=== PATIENT | male | born 1985 | race African-American/Black ===

== ENCOUNTER 2018-10-15 14:56 | Emergency (ER) | payer OTHER, BC, SELFPAY ==
[2018-10-15 14:57] VITALS: BP 141/84; PULSE 79; RESP 17; TEMP 35.8; O2SAT 96; BMI 23.7
--- NOTE | 2018-10-15 15:19 | ED.DEP ---
ED Disposition - Plan for ED Patient: Instructions: ED Head Injury Closed Referrals: Arnold Garces MD [Primary Care Provider] - [facility] [GROUP OF PHYSICIANS] -
--- NOTE | 2018-10-15 15:20 | DCINST.ED_ITS ---
ED Disposition - Plan for ED Patient: Instructions: ED Head Injury Closed Referrals: Arnold Garces MD [Primary Care Provider] - [facility] [GROUP OF PHYSICIANS] -
--- NOTE | 2018-10-15 15:22 | ED.VISSUMM ---
- ER Visit Summary Date of Service: 10/15/18 Chief Complaint: Head injury History of Present Illness: The patient is a 33 M presenting after hitting his head. Patient was at work. He states he was sitting in a chair leaning back. He states he hit the back of his head on a filing cabinet. He did not lose consciousness. No amnesia to the event. No vomiting. He complains of headache. He did not fall to the floor. He tried no medication prior to arrival. No other injuries. He is not on anticoagulants. Physical Examination: Vitals are stable. Patient is afebrile. Alert no acute distress. HEENT exam is unremarkable. Neck is nontender Lungs are clear and equal bilaterally. Heart is regular rate and rhythm. Abdomen is soft nontender nondistended. Extremities are unremarkable. Skin is warm and dry. No focal neurologic deficit. Remainder of exam is unremarkable. Emergency Department Course and Treatment: Patient is advised to use ice pack. Advised to use NSAIDs. Advised to follow-up with [facility] care. Advised return to ED if worsening complaints. Disposition: Discharge home Impression: Closed head injury This note was generated with [employer] dictation software. It may contain incorrect words, spelling, and punctuation that were not noted in review of the chart prior to signing ED Disposition - Plan for ED Patient: Instructions: ED Head Injury Closed Referrals: [facility] [GROUP OF PHYSICIANS] - Arnold Garces MD [Primary Care Provider] -
--- NOTE | 2018-10-15 15:29 | ED.DCSUM_ITS ---
- ER Visit Summary Date of Service: 10/15/18 Chief Complaint: Head injury History of Present Illness: The patient is a 33 M presenting after hitting his head. Patient was at work. He states he was sitting in a chair leaning back. He states he hit the back of his head on a filing cabinet. He did not lose consciousness. No amnesia to the event. No vomiting. He complains of headache. He did not fall to the floor. He tried no medication prior to arrival. No other injuries. He is not on anticoagulants. Physical Examination: Vitals are stable. Patient is afebrile. Alert no acute distress. HEENT exam is unremarkable. Neck is nontender Lungs are clear and equal bilaterally. Heart is regular rate and rhythm. Abdomen is soft nontender nondistended. Extremities are unremarkable. Skin is warm and dry. No focal neurologic deficit. Remainder of exam is unremarkable. Emergency Department Course and Treatment: Patient is advised to use ice pack. Advised to use NSAIDs. Advised to follow-up with [facility] care. Advised return to ED if worsening complaints. Disposition: Discharge home Impression: Closed head injury This note was generated with [employer] dictation software. It may contain incorrect words, spelling, and punctuation that were not noted in review of the chart prior to signing ED Disposition - Plan for ED Patient: Instructions: ED Head Injury Closed Referrals: [facility] [GROUP OF PHYSICIANS] - Arnold Garces MD [Primary Care Provider] -
== END 2018-10-15 16:00 | disposition home or self-care (01) ==
LOC: ED 15:49
PROVIDERS: Emergency Provider Emergency Medicine; Family Provider Internal Medicine; PCP Internal Medicine
DX: S09.90XA Unspecified injury of head, initial encounter (principal); W22.8XXA Striking against or struck by other objects, initial encounter; Y93.89 Activity, other specified; Y92.89 Other specified places as the place of occurrence of the external cause; Y99.0 Civilian activity done for income or pay
CPT/HCPCS: 99282

== ENCOUNTER → 2018-11-23 09:15 | Outpatient (CLI) | payer BC, SELFPAY ==
[2018-11-23 09:15] VITALS: BMI 23.7
[2018-11-23 12:39] LABS: Absolute Lymphocyte Count 2.56 X10^3/ul (0.83-4.51); Absolute Neutrophil Count 1.7 X10^3/uL (2.0-7.7); Basophil# 0.02 X10^3/uL; Basophil% 0.4 % (0-1); Eosinophil# 0.07 X10^3/uL; Eosinophils% 1.5 % (0-5); Hematocrit 39.4 % (40-54); Hemoglobin 13.2 g/dl (13.0-16.5); Lymphocyte # 2.56 X10^3/ul (4.0); Lymphocyte % 53.2 % (19-41); Mean Corp Hgb Conc 33.5 g/gl (32-36); Mean Corpuscular Hgb 27.8 pg (27.0-32.0); Mean Corpuscular Volume 83.1 fL (80-94); Mean Platelet Vol. 9.3 fl (6.2-12.0); Monocyte# 0.47 X10^3/uL; Monocyte% 9.8 % (0-10); Neutrophil # 1.69 X10^3/uL (2.7-7.7); Neutrophil % 35.1 % (47-70); Platelet Count 271 K/mm3 (150-450); RBC Distribution Width CV 13.9 % (11.6-14.6); RBC Distribution Width SD 42.6 fl (35.1-43.9); Red Blood Count 4.74 M/mm3 (4.6-6.2); White Blood Count 4.8 K/mm3 (4.4-11.0)
[2018-11-23 12:50] LABS: POSITIVE COUNT NO; POSITIVE DIFFERENTIAL NO; POSITIVE MORPHOLOGY NO
[2018-11-23 13:03] LABS: ALB/GLOB Ratio 1.1 RATIO (0.9-2.4); AST(SGOT) 12 U/L (15-37); Alanine Aminotransfer ALT/SGPT 28 U/L (16-61); Albumin, Serum 4.1 g/dL (3.2-5.0); Alkaline Phosphatase 48 U/L (45-117); Anion Gap 4 (5-15); BUN 11 mg/dL (7-18); BUN/Creat Ratio 10.5 RATIO (10-20); Calcium,Total 9.1 mg/dL (8.5-10.1); Chloride 105 mmol/L (98-107); Creatinine, Serum 1.05 mg/dL (0.70-1.30); EST Glomerular Filtration Rate 87 mL/min (>60); Est Glom Filt Rate - Afr Amer 105 mL/min (>60); Globulin 3.6 g/dL (2.2-4.2); Glucose 91 mg/dL (74-106); Potassium 3.9 mmol/L (3.5-5.1); Protein, Total 7.7 g/dL (6.4-8.2); Sodium Level 137 mmol/L (136-145)
== END ==
PROVIDERS: Family Provider Internal Medicine; PCP Internal Medicine; Visit Provider Internal Medicine
DX: Z00.00 Encounter for general adult medical examination without abnormal findings (principal)
CPT/HCPCS: 36415; 80053; 85025

== ENCOUNTER → 2018-11-26 13:50 | Outpatient (CLI) | payer BC, OTHER, SELFPAY ==
[2018-11-23 09:15] VITALS: BMI 23.7
--- NOTE | 2018-11-26 13:54 | RAD_ITS ---
STUDY: X-RAY - LUMBAR SPINE REASON FOR EXAM: Male, 33 years old. Back pain radiating into the legs TECHNIQUE: 5 view(s) of the lumbar spine were obtained. COMPARISON: None FINDINGS: Normal lumbar lordosis. There is no substantial scoliosis. There is a normal alignment of the vertebrae. Normal vertebral bodies and endplates. Normal disc space heights. The soft tissue structures are unremarkable. RAD/L/S Spine Min 4 Views IMPRESSION: Normal x-ray examination of the lumbar spine. Electronically Signed: Alex Garza DO at 14:41 EDT Tel , Service support ,
--- NOTE | 2018-11-26 13:54 | RAD_ITS ---
STUDY: X-RAY - THORACIC SPINE REASON FOR EXAM: Male, 33 years old. Mid back pain TECHNIQUE: 3 view(s) of the thoracic spine were obtained. COMPARISON: None. FINDINGS: Normal kyphosis of the thoracic spine. There is no substantial scoliosis. Normal thoracic vertebrae and endplates. Normal disc space heights. The soft tissue structures are unremarkable. RAD/Thoracic Spine 2 Views IMPRESSION: Normal x-ray examination of the thoracic spine. Electronically Signed: Alex Garza DO at 14:41 EDT Tel , Service support ,
== END ==
PROVIDERS: Family Provider Internal Medicine; PCP Internal Medicine; Referring Provider Chiropractor; Visit Provider Chiropractor
DX: S23.3XXA Sprain of ligaments of thoracic spine, initial encounter (principal); S33.5XXA Sprain of ligaments of lumbar spine, initial encounter; X58.XXXA Exposure to other specified factors, initial encounter; Y93.9 Activity, unspecified; Y92.9 Unspecified place or not applicable; Y99.9 Unspecified external cause status
CPT/HCPCS: 72070; 72110

== ENCOUNTER 2019-01-07 10:00 | Outpatient (RCR) | payer OTHER, BC, SELFPAY ==
[2018-11-23 09:15] VITALS: BMI 23.7
--- NOTE | 2018-12-07 13:13 | HP.PTEVAL_ITS ---
Patient's Visit Information ALEJANDRA FROST is a 33 year old M referred to Physical Therapy by Waldemar Beavers with a diagnosis of LUMBAR STRAIN. Date of Evaluation: 12/07/18 Physical Therapist: Dimas Pham PT, Cert MDT, OCS - Visit Plan Frequency: 2x /Week Duration: 4 Weeks Plan: INTERVENTIONS OTF EX,FLEXABLITY ,PROGRESS TO DLS ABD/BACK ,MODALTIES NEEDED - Subjective Findings: This 33 y/o male presenst to physical therapy with lumbar sprain. Patient injuried lumbar spine Oct 13 at work [employer]. Patient intially had LBP ,continue to work . Then 10 days later symptoms became Dr Beavers . Tried adjusments and treatment. Patient had x-rays - Pateint location of symptoms symtrical low back pain with radiating symptoms in hams -calf. Aggraveting factors bending lifting,bending,standing ,walking,sitting . Aleviating factors heat. No MEDS. Coughing/sneezing -. Bowel/bladder -. Patient is off work. C/O tinling left leg. Patient symptoms affect function abilty to RTW ,housework tasks. Patient condition affects QOL. SOCAIL: SINGLE. VOVATION: [employer] - Pain Bilateral Back Pain Intensity (Out of 10): 7 Pain Intensity Range: 6, 10 Left Lower Extremity Pain Intensity (Out of 10): 8 Pain Intensity Range: 10 - Objective POSTURE: mild foward posture. GAIT: normal perri. PALAPTION: unremarkable. NEURO: reflexes L3-4,L4-5,L5-S1 1/3 occassional parathesia left leg. MMT: quads 3+/5 + ANR ,hams 4/5 left ,right 4/5,hip flexion 4/5,ankle 5/5. LUMBAR ROM: flexion miod loss ,extension min/mod loss,side glides min loss. SYMMTRIES: align. FLEXABLITY: hams mod left ,right min - Special Tests L/S Slump test left side: Positive L/S Slump test right side: Negative L/S Left Straight Leg Raise: Negative L/S Right Straight Leg Raise: Positive Lumbar Standing: Flexion - Mechanical Response: No effect Lumbar Standing: Flexion - Symptoms During Testing: Increases Lumbar Standing: Flexion - Symptoms After Testing: Worse Lumbar Standing: Extension - Mechanical Response: No effect Lumbar Standing: Extension - Symptoms During Testing: Increases Lumbar Standing: Extension - Symptoms After Testing: No worse Lumbar Standing: Right Side Glides - Mechanical Response: No effect Lumbar Standing: Right Side [place] - Symptoms During Testing: Increases Lumbar Standing: Right Side [place] - Symptoms After Testing: No worse Lumbar Standing: Left Side [place] - Mechanical Response: No effect Lumbar Standing: Left Side [place] - Symptoms During Testing: Increases Lumbar Standing: Left Side [place] - Symptoms After Testing: No worse Lumbar Lying: Flexion - Mechanical Response: No effect Lumbar Lying: Flexion - Symptoms During Testing: Increases Lumbar Lying: Flexion - Symptoms After Testing: Worse Lumbar Lying: Extension - Mechanical Response: No effect Lumbar Lying: Extension - Symptoms During Testing: Abolishes Lumbar Lying: Extension - Symptoms After Testing: Better - Goals Goal 1:: Independant with HEP. Goal Time Frame: 4-6 Weeks Goal 2:: Independant with posture/body mechanics Goal Time Frame: 4-6 Weeks Goal 3:: Decreased lumbar pain by 50 % or greater to improve function to gait. Goal Time Frame: 4-6 Weeks Goal 4:: Patient to improve lumbar ROM for function recovery. Goal Time Frame: 4-6 Weeks Goal 5:: Patient increase back owestry 5 points or greater to improve QOL. 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 improve with extension worse with flexion thus benifit from skilled PT Rehabilitation Potential: Good - Anticipated Interventions Patient/Client Instruction: Educate patient on: Condition, Plan of Care For the Purpose of:: To decrease pain, To increase ROM, To improve muscle performance and motor function, To increase tolerance to activity/condition/position, To improve ability of physical actions for home/community/work/leisure, To improve health of tissue, To decrease soft tissue restriction, To increase flexibility/ROM, To reduce risk of recurrence, To improve ability to perform tasks related to life management Therapeutic Exercise to Include: Strength training, Body mechanics, Postural training, Flexibilty training, Dynamic Lumbar Stabilization, Otf Exercises For the Purpose of:: To decrease pain, To increase ROM, To improve muscle performance and motor function, To increase tolerance to activity/condition/position, To improve ability of physical actions for home/community/work/leisure, To improve health of tissue, To decrease soft tissue restriction, To increase flexibility/ROM, To improve ability to perform tasks related to life management TENS: Yes IF ES: Yes Thermo therapy (hot pack): Yes Ultrasound (thermal/non thermal): Yes For the Purpose of:: To decrease pain, To increase ROM, To improve nutrient delivery to tissue, To increase oxygenation perfusion, To improve health of tissue, To decrease soft tissue restriction Thank you for the opportunity to evaluate your patient. For Medicare and Medicare HMO plans, please review the plan of care and approve it. It will need to be FAXED BACK to us at [phone] for Medicare purposes. For Medicare only, by signing this I certify the plan of care. Please let me know if there are questions or concerns regarding this plan of care. Physician Signature: Date:
--- NOTE | 2019-01-19 13:19 | HP.PTDCSUM ---
HP - PT D/C Summary It has been my pleasure to treat ALEJANDRA FROST under orders from Waldemar Beavers, for the diagnosis of LUMBAR STRAIN for a total of 10 visit(s). Discharge Date: 01/19/19 Please see the following information for a summary of their discharge status. - Subjective Subjective: Doing alot better ,ocassional pain lateral hip. Patient doing alot better with pain - Pain Bilateral Back Pain Intensity (Out of 10): 0 Left Lower Extremity Pain Intensity (Out of 10): 1 - Overall Improvement % Improvement: 75 - Objective Objective/Function: POSTURE: WFL. GAIT: normal perri. LUMBAR ROM: flexion min loss ,extension min loss,side glides WFL. MMT: quads/hams 4/5,4/5hip flexion/abd ,ankle 4/5. -SLR. FLEXABLITY: hams mod limited on left - Goals Goal 1:: Independant with HEP. Goal Progress: Goal Met Goal 2:: Independant with posture/body mechanics Goal Progress: Goal Met Goal 3:: Decreased lumbar pain by 50 % or greater to improve function to gait. Goal Progress: Goal Met Goal 4:: Patient to improve lumbar ROM for function recovery. Goal Progress: Goal Met Goal 5:: Patient increase back owestry 5 points or greater to improve QOL. Goal Progress: Goal Met Goal 6:: Decrease ANR for function of recovery Goal Progress: Goal Met - Plan Plan: D/C AND RTD - D/C Information If there are questions or concerns regarding this patient's physical therapy, please feel free to call me at [phone]. Thank you for the referral of this patient. Sincerely, Dimas Pham, PT, Cert MDT, OCS
== END 2019-01-07 19:00 | disposition home or self-care (01) ==
LOC: PT 10:00
PROVIDERS: Family Provider Internal Medicine; PCP Internal Medicine; Referring Provider Chiropractor; Visit Provider Chiropractor
DX: S33.5XXD Sprain of ligaments of lumbar spine, subsequent encounter (principal)
CPT/HCPCS: 97110; 97161; 97530; J2405

== ENCOUNTER 2019-02-22 10:00 | Outpatient (RCR) | payer BC, OTHER, SELFPAY ==
[2018-11-23 09:15] VITALS: BMI 23.7
--- NOTE | 2019-01-22 11:24 | HP.PTREVAL ---
Waldemar Beavers, It has been my pleasure to treat ALEJANDRA FROST over the last 1 visits for LUMBAR STRAIN. Please see the progress note below for an update on the physical therapy plan of care! Plan Plan: PT INTERVENTIONS OTF EX'S,DLS ,POSTURAL EX'S,LE FLEXABLITY Goals Goal 1:: Patient to be Independant with HEP Goal Time Frame: 4-6 Weeks Goal 2:: Independant with posture /body mechanics . Goal Time Frame: 4-6 Weeks Goal 3:: Patient to improve lumbar ROM for function of recovery. Goal Time Frame: 4-6 Weeks Goal 4:: Patient decrease pain by 80 % or greater to improve function. Goal Time Frame: 4-6 Weeks Goal 5:: Patient to improve back owestry score by 5 points or greater to improve QOL. Goal Time Frame: 4-6 Weeks Anticipated Interventions Patient/Client Instruction: Educate patient on: Condition, Plan of Care For the Purpose of:: To decrease pain, To increase ROM, To improve muscle performance and motor function, To increase tolerance to activity/condition/position, To improve ability of physical actions for home/community/work/leisure, To improve health of tissue, To decrease soft tissue restriction, To increase flexibility/ROM, To improve health and function, To improve ability to perform tasks related to life management Therapeutic Exercise to Include: Strength training, Body mechanics, Postural training, Flexibilty training, Dynamic Lumbar Stabilization, Otf Exercises For the Purpose of:: To decrease pain, To increase ROM, To improve muscle performance and motor function, To improve ability to perform ADL's, To increase tolerance to activity/condition/position, To improve ability of physical actions for home/community/work/leisure, To improve health of tissue, To decrease soft tissue restriction, To increase flexibility/ROM, To improve ability to perform tasks related to life management Manual Therapy Techniques to Include: Mobilization Comment: LUMBAR For the Purpose of:: To increase ROM, To improve nutrient delivery to tissue, To increase oxygenation perfusion, To improve health of tissue, To decrease soft tissue restriction TENS: Yes IF ES: Yes Cryotherapy (ice pack, ice massage): Yes Thermo therapy (hot pack): Yes Ultrasound (thermal/non thermal): Yes For the Purpose of:: To decrease pain, To increase ROM, To improve nutrient delivery to tissue, To increase oxygenation perfusion, To improve health of tissue, To decrease soft tissue restriction Please do not hesitate to contact me at [phone] by phone or if you have questions or concerns regarding this new plan of care! Sincerely, Dimas Pham, PT, Cert MDT, OCS
--- NOTE | 2019-01-22 11:25 | HP.PTEVAL_ITS ---
Patient's Visit Information ALEJANDRA FROST is a 33 year old M referred to Physical Therapy by Waldemar Beavers with a diagnosis of LUMBAR STRAIN. Date of Evaluation: 01/22/19 Physical Therapist: Dimas Pham, PT, Cert MDT, OCS - Visit Plan Frequency: 2x /Week Duration: 4 Weeks Plan: PT INTERVENTIONS OTF EX'S,DLS ,POSTURAL EX'S,LE FLEXABLITY - Subjective Findings: This 33 y/o male presnets to physical therapy with lumbar pain. 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 Patient had adjustments which helped. Patient had x-rays which was -.Patient intilally had symptoms LBP hams to calf . Symptoms currently lateral hip to hams. Aggravating factors worse with extended siting,bending lifting. Aleviating f actors walking,standing and physical therapy and correct posture. Altough ,with extended walking lateral hip can increase symptoms . Sleeping good. Coughing/sneezing-. Bowel.bladder-. Seen DR Beavers for adjustment which helped and recommended. Dave parathesia/tingling. Symptoms affect QOL and RTW. SOCIAL: single. VOCATION: [employer] - Pain Left Hip Pain Intensity (Out of 10): 5 Pain Intensity Range: 10 Left Back Pain Intensity (Out of 10): 4 Pain Intensity Range: 10 - Objective POSTURE: shoulder. NEURO: denies parathesia/tingling ,reflexes L3-4,L4-5,L5-S1 3/3. PALAPTION: unremarkable. SYMMTRIES : align. MMT: quads/hams/hip 5/5right ,left 4/5 ankle 4/5. LUMBAR ROM: flexion min loss,extension WFL,side glides WFL. FLEXABLITY: hams mod loss. MUSCULAR ENDURANCE abd 30sec TA activation ,back ext 25 sec - Special Tests L/S Slump test left side: Positive L/S Slump test right side: Negative L/S Left Straight Leg Raise: Negative L/S Right Straight Leg Raise: Negative - Goals Goal 1:: Patient to be Independant with HEP Goal Time Frame: 4-6 Weeks Goal 2:: Independant with posture /body mechanics . Goal Time Frame: 4-6 Weeks Goal 3:: Patient to improve lumbar ROM for function of recovery. Goal Time Frame: 4-6 Weeks Goal 4:: Patient decrease pain by 80 % or greater to improve function. Goal Time Frame: 4-6 Weeks Goal 5:: Patient to improve back owestry score by 5 points or greater to improve QOL. Goal Time Frame: 4-6 Weeks - Rehabilitation Potential Physical Therapy Diagnosis: This patient appears to have lumbar derrangement above knee with pain worse with flexion type of activities improves with posture and extension thus benifit from skilled PT Rehabilitation Potential: Good - Anticipated Interventions Patient/Client Instruction: Educate patient on: Condition, Plan of Care For the Purpose of:: To decrease pain, To increase ROM, To improve muscle performance and motor function, To increase tolerance to activity/condition/position, To improve ability of physical actions for home/community/work/leisure, To improve health of tissue, To decrease soft tissue restriction, To increase flexibility/ROM, To improve health and function, To improve ability to perform tasks related to life management Therapeutic Exercise to Include: Strength training, Body mechanics, Postural training, Flexibilty training, Dynamic Lumbar Stabilization, Otf Exercises For the Purpose of:: To decrease pain, To increase ROM, To improve muscle performance and motor function, To improve ability to perform ADL's, To increase tolerance to activity/condition/position, To improve ability of physical actions for home/community/work/leisure, To improve health of tissue, To decrease soft tissue restriction, To increase flexibility/ROM, To improve ability to perform tasks related to life management Manual Therapy Techniques to Include: Mobilization Comment: LUMBAR For the Purpose of:: To increase ROM, To improve nutrient delivery to tissue, To increase oxygenation perfusion, To improve health of tissue, To decrease soft tissue restriction TENS: Yes IF ES: Yes Cryotherapy (ice pack, ice massage): Yes Thermo therapy (hot pack): Yes Ultrasound (thermal/non thermal): Yes For the Purpose of:: To decrease pain, To increase ROM, To improve nutrient delivery to tissue, To increase oxygenation perfusion, To improve health of tissue, To decrease soft tissue restriction Thank you for the opportunity to evaluate your patient. For Medicare and Medicare HMO plans, please review the plan of care and approve it. It will need to be FAXED BACK to us at [phone] for Medicare purposes. For Medicare only, by signing this I certify the plan of care. Please let me know if there are questions or concerns regarding this plan of care. Physician Signature: ___Date:
--- NOTE | 2019-06-08 10:21 | HP.PTDCSUM ---
HP - PT D/C Summary It has been my pleasure to treat ALEJANDRA FROST under orders from Waldemar Beavers, for the diagnosis of LUMBAR STRAIN for a total of 10 visit(s). Discharge Date: Please see the following information for a summary of their discharge status. - Subjective Subjective: Plan to MRI. - Pain Left Hip Pain Intensity (Out of 10): 5 Left Back Pain Intensity (Out of 10): 6 - Overall Improvement % Improvement: 70 - Objective Objective/Function: POSTURE: WFL. GAIT: NORMAL JONI. NEURO: INTACT L3-4,L4-5,L5-S1 3/3. MMT: RIGHT 5/5,LEFT 4/5. LUMBAR ROM: FLEXION MIN LOSS,EXTENSION WFL,SIDE GLIDES WFL. -SLR. REPONDS WELL WITH OTF EX'S AND DLS - Goals Goal 1:: Patient to be Independant with HEP Goal Progress: Goal Met Goal 2:: Independant with posture /body mechanics . Goal Progress: Goal Met Goal 3:: Patient to improve lumbar ROM for function of recovery. Goal Progress: Progressing Goal 4:: Patient decrease pain by 80 % or greater to improve function. Goal 5:: Patient to improve back owestry score by 5 points or greater to improve QOL. Goal Progress: Progressing - Plan Plan: MRI - D/C Information If there are questions or concerns regarding this patient's physical therapy, please feel free to call me at [phone]. Thank you for the referral of this patient. Sincerely, Dimas Pham, PT, Cert MDT, OCS
== END 2019-02-22 19:00 | disposition home or self-care (01) ==
LOC: PT 10:00
PROVIDERS: Family Provider Internal Medicine; PCP Internal Medicine; Referring Provider Chiropractor; Visit Provider Chiropractor
DX: S33.5XXD Sprain of ligaments of lumbar spine, subsequent encounter (principal)
CPT/HCPCS: 97110; 97164; 97530

== ENCOUNTER → 2019-02-26 | Outpatient (CLI) | payer OTHER, BC, SELFPAY ==
[2019-02-17 15:17] VITALS: BMI 23.7
--- NOTE | 2019-02-26 17:48 | MRI_ITS ---
STUDY: MRI LUMBAR SPINE WITHOUT CONTRAST REASON FOR EXAM: Male, 33 years old. sprain, LOW BACK PAIN INTO L HIP, NO RELIEF WITH THERAPY. TECHNIQUE: Standardized fat and water weighted pulse sequences were obtained in the sagittal and axial planes. COMPARISON: X-ray dated November 26, 2018 FINDINGS: T12-L1: Normal endplates. Normal disc height, hydration and morphology. Normal bilateral facet joints. Normal central canal and bilateral lateral recesses. Normal bilateral intervertebral neural foramina. Normal lumbar lordosis. There is no substantial scoliosis. Normal conus medullaris that terminates at the L1 L1-2: Normal endplates. Normal disc height, hydration and morphology. Normal bilateral facet joints. Normal central canal and bilateral lateral recesses. Normal bilateral intervertebral neural foramina. L2-3: Normal endplates. Normal disc height, hydration and morphology. Normal bilateral facet joints. Normal central canal and bilateral lateral recesses. Normal bilateral intervertebral neural foramina. L3-4: Normal endplates. Normal disc height, hydration and morphology. Normal bilateral facet joints. Normal central canal and bilateral lateral recesses. Normal bilateral intervertebral neural foramina. L4-5: There is mild disc space narrowing and endplates spondylosis. There is mild disc bulge with shallow left paracentral protrusion with moderate left lateral recess narrowing there is not significant central canal or foraminal stenosis L5-S1: Normal endplates. Normal disc height, hydration and morphology. Normal bilateral facet joints. Normal central canal and bilateral lateral recesses. Normal bilateral intervertebral neural foramina. Normal visualized sacral ala. Normal visualized paraspinous soft tissue structures. MRI/Spine Lumbar (Routine) IMPRESSION: L4/L5: Left paracentral protrusion with moderate left lateral recess narrowing. Electronically Signed: Dominga Caputo MD at 15:50 EDT Tel , Service support ,
== END | disposition home or self-care (01) ==
LOC: MRI 17:48
PROVIDERS: Family Provider Internal Medicine; PCP Internal Medicine; Referring Provider Chiropractor; Visit Provider Chiropractor
DX: S33.5XXA Sprain of ligaments of lumbar spine, initial encounter (principal)
CPT/HCPCS: 72148

== ENCOUNTER 2019-07-15 12:56 | Emergency (ER) | payer SELFPAY ==
[2019-03-30 09:32] VITALS: BMI 25.7
[2019-07-15 12:56] VITALS: BP 155/96; PULSE 126; RESP 16; TEMP 36.6; O2SAT 98; BMI 25.5
--- NOTE | 2019-07-15 13:12 | ED.DCSUM_ITS ---
- ER Visit Summary Date of Service: 07/15/19 Chief Complaint: Lump on neck History of Present Illness: The patient is a [address] Garces. He noticed that lump on the right occipital neck yesterday. He reports that he is an aching pain that is 5 out of 10 at worst and 4-10 currently. Is worsened by turning his head to the right. Is relieved by rest. Is not taking anything for pain. He denies any fever, chills, nausea, vomiting, headache, or other constitutional symptoms. Physical Examination: Vitals: Stable. Afebrile. General: Well-nourished and well-developed. Head: Normocephalic atraumatic. The right occipital region there is a solitary pea-sized lymph node that is freely mobile. There is no overlying erythema. No fluctuance or induration. Is not tender to palpation. There is no other cervical lymphadenopathy. Neck: Supple, no lymphadenopathy. No JVD. Nontender. Cardiovascular: Regular rate and rhythm. No murmurs. Respiratory: No respiratory distress. Clear to auscultation bilaterally. Abdominal: Soft, nontender, nondistended, normal bowel sounds. No guarding, rebound, or peritoneal signs. Back: Nontender. Extremities: Nontender, no edema. Skin: Normal color, no rash. Neurologic: Alert and oriented ?3. Cranial nerves II through XII are intact. Normal strength and sensation. Psych: Normal affect. Emergency Department Course and Treatment: I discussed the patient possible etiologies for this. As it is in his hair I am unable to say that he may not have a area of cellulitis that is the source of his lymphadenopathy. He was given a dose of doxycycline. Treatment Plan: Patient will be discharged on doxycycline. Instructed to follow-up his primary care physician 1 week. He does understand that if this does not improve with antibiotics that he may require a biopsy of this to rule out a more serious cause such as lymphoma. Return to the emergency department for any worsening symptoms. Disposition: To home in improved and stable condition. Impression: 1. Right occipital lymphadenitis. This note was generated with [employer] software. It may contain incorrect words, spelling, and punctuation that were not noted in review of the chart prior to signing ED Disposition - Plan for ED Patient: Disposition: Home or Assisted Living Instructions: CERVICAL ADENITIS, Antiobiotic Treatment Prescriptions: Doxycycline 100 mg PO BID #14 cap Prescription Printed Referrals: Arnold Garces MD [Primary Care Provider] - Keep Babs appointment
[2019-07-15] MEDS: Doxycycline 100 MG CAPSULE PO (13:24)
== END 2019-07-15 13:24 | disposition home or self-care (01) ==
LOC: ED 13:13
PROVIDERS: Emergency Provider Emergency Medicine; Family Provider Internal Medicine; PCP Internal Medicine
DX: I88.9 Nonspecific lymphadenitis, unspecified (principal)
CPT/HCPCS: 99283

== ENCOUNTER → 2019-07-19 11:59 | Outpatient (CLI) | payer BC, SELFPAY ==
[2019-07-19 11:36] VITALS: BMI 25.5
[2019-07-19 13:00] LABS: Anion Gap 4 (5-15); BUN 12 mg/dL (7-18); BUN/Creat Ratio 11.3 RATIO (10-20); Chloride 105 mmol/L (98-107); Cholesterol 131 mg/dL (200); Creatinine, Serum 1.06 mg/dL (0.70-1.30); EST Glomerular Filtration Rate 86 mL/min (>60); Est Glom Filt Rate - Afr Amer 104 mL/min (>60); Glucose 92 mg/dL (74-106); High Density Lipoprotein 46 mg/dL; Potassium 4.1 mmol/L (3.5-5.1); Sodium Level 138 mmol/L (136-145); Triglycerides 61 mg/dL; Very Low Density Lipoprotein 12 mg/dL (5-40)
== END ==
PROVIDERS: Family Provider Internal Medicine; PCP Internal Medicine; Visit Provider Internal Medicine
DX: I10 Essential (primary) hypertension (principal)
CPT/HCPCS: 36415; 80048; 80061

== ENCOUNTER 2022-03-30 20:30 | Emergency (ER) | payer OTHER, SELFPAY ==
[2022-03-30 20:32] VITALS: BP 164/108; PULSE 87; RESP 14; TEMP 36; O2SAT 99; BMI 24.9
--- NOTE | 2022-03-30 20:52 | EDS_ITS ---
HPI History of Present Illness Chief Complaint: Lower Extremity Injury Detail of Chief Complaint: Left leg/ankle pain Informant: patient Onset/Context/Timing Onset: Weeks Context: Gradual Onset Timing: Waxes and wanes Current Severity: Mild Maximum Severity: Moderate Narrative Narrative: Patient presents secondary to left ankle pain that is been ongoing for 6 weeks. On further questioning patient states that he had sciatica about 3 years ago. It subsided but over the past 6 weeks he now has pain that shoots all the way down his left leg into his ankle. He has never had affect his ankle before. He states his ankle does seem to be tender to the touch. He does not remember a specific injury to his lower leg. [facility] Medical History (Updated 03/30/22 @ 21:[address] Leslee Hebert MD) Back pain Frequent headaches Home Medications cyclobenzaprine 10 mg tablet 10 mg PO BID PRN muscle spasm #10 tabs 03/30/22 [Rx Last Taken Unknown] famotidine 40 mg tablet (Pepcid) 40 mg PO DAILY #14 tabs 03/30/22 [Rx Last Taken Unknown] hydrocodone-acetaminophen 5-325mg 5mg-325mg 1 tab PO Q6H PRN pain 3 days #10 tabs 03/30/22 [Rx Last Taken Unknown] naproxen 500 mg tablet (Naprosyn) 500 mg PO BID PRN pain #20 tabs 03/30/22 [Rx Last Taken Unknown] prednisone 20 mg tablet 40 mg PO DAILY #8 tabs 03/30/22 [Rx Last Taken Unknown] Allergy/AdvReac Type Severity Reaction Status Date / Time No Known Allergies Allergy Verified 03/30/22 20:32 Family History Father Cancer Mother Cancer Other Arthritis Diabetes Heart disease Hyperlipemia Hypertension Social History Smoking Status: Never smoker alcohol intake: current alcohol intake frequency: holidays/special occasions only substance use type: does not use what type of physical activity do you participate in: running frequency: 1-2 times per week ROS ROS ED Constitutional Constitutional ED: Denies chills or fever(s) Eyes Eyes: Denies change in vision or discharge from eye(s) ENT ENT ED: Denies discharge from eye(s), rhinorrhea or sore throat Cardiovascular Cardiovascular: Denies chest pain or palpitations Respiratory/Chest Respiratory/Chest: Denies cough or dyspnea Gastrointestinal Gastrointestinal: Denies abdominal pain, diarrhea, nausea or vomiting Genitourinary Genitourinary ED: Denies difficulty urinating or dysuria Musculoskeletal Musculoskeletal: Reports back pain and extremity pain Integumentary Denies Abrasions or rash Neurologic Neurologic: Denies headache(s) or weakness Psychiatric Psychiatric: Denies anxiety or depression Allergic/Immunologic Allergic/Immunologic ED: Denies lip swelling or urticaria EXAM Physical Exam Const Vital Signs: 03/30/22 20:32 03/30/22 21:05 Temperature 96.8 F L Temperature Source Temporal Pulse Rate 87 Respiratory Rate 14 Blood Pressure 164/108 H 135/94 H Blood Pressure Mean 126 107 Pulse Ox 99 Oxygen Delivery Method Room Air Positive well nourished and well developed General Appearance ED: well developed HEENT Reports normocephalic and head/scalp atraumatic Eyes PERRL and EOMs intact bilaterally Neck supple Chest Wall inspection of chest normal and palpation of chest normal Resp normal respiratory effort and clear to auscultation bilaterally Cardio regular rate and regular rhythm GI normal to inspection, nondistended, normoactive bowel sounds Palpation: soft Back/Spine no CVA tenderness Back/Spine Narrative: Mild tenderness in the left low lumbar paraspinal muscles. Extremity normal to inspection Extremity Narrative: Mild tenderness along the distal fibula of the left leg. No overlying skin changes. No edema. Neuro oriented x3 and no sensory deficits noted Sensorium / Orientation: alert Motor Exam: strength 5/5 throughout Psych mental status grossly normal Skin no rashes or lesions noted MDM MDM MDM Narrative Medical decision making narrative: With the patient having reproducible pain over the fibula left tib-fib x-rays are obtained to ensure no bony lesion. Treatment and Re-Evaluation Narrative: Left tib-fib x-ray per my interpretation shows no acute findings. Test results discussed with the patient. He is not currently on any medications at home. He will be given prescription for Naprosyn, Flexeril, prednisone, Pepcid. He will be written a few [place] for breakthrough pain. He will follow-up with Dr. Garces who he has seen in the past. Discharge Plan Triage Chief Complaint: Lower Extremity Injury ED Provider: Hebert,Leslee Dx/Rx/DC Orders Clinical Impression: Sciatica Instructions: ED Sciatica Prescriptions: New naproxen [Naprosyn] 500 mg tablet 500 mg PO BID PRN (Reason: pain) Qty: 20 0RF cyclobenzaprine 10 mg tablet 10 mg PO BID PRN (Reason: muscle spasm) Qty: 10 0RF prednisone 20 mg tablet 40 mg PO DAILY Qty: 8 0RF famotidine [Pepcid] 40 mg tablet 40 mg PO DAILY Qty: 14 0RF hydrocodone-acetaminophen 5-325 mg tablet 1 tab PO Q6H PRN (Reason: pain) 3 Days Qty: 10 0RF Discontinued meloxicam 15 mg tablet 15 mg PO DAILY PRN (Reason: back pain) Qty: 60 2RF Rx Instructions: Take 7.5 - 15 mg daily as needed. cyclobenzaprine 10 mg tablet 10 mg PO TID PRN (Reason: muscle spasm) Qty: 90 3RF hydrochlorothiazide 12.5 mg tablet 12.5 mg PO DAILY Qty: 30 3RF doxycycline monohydrate 100 MG capsule 100 mg PO BID Qty: 14 0RF Primary Care Provider: Care Physician,No Primary Referrals: Arnold Garces MD [Med Staff - Active Staff] - 1-2 Weeks Disposition Disposition: Home, Self Care
[2022-03-30 21:05] VITALS: BP 135/94
--- NOTE | 2022-03-30 21:24 | RAD_ITS ---
EXAM: XR LEFT TIBIA AND FIBULA, 2 VIEWS CLINICAL INDICATION: pain TECHNIQUE: Frontal and lateral views of the left tibia and fibula. This report was created using videof.me report generation technology. COMPARISON: None. FINDINGS: BONES/JOINTS: Unremarkable. No acute fracture. No subluxation. Normal alignment. Preservation of the joint space. No sclerotic or destructive changes observed. SOFT TISSUES: Unremarkable. No soft tissue swelling or gas. No radiopaque foreign body. RAD/Tibia & Fibula 2 Views IMPRESSION: Negative left tibia and fibula x-rays. Electronically Signed: Jose Carlos Guadarrama MD at 22:22 EDT ,
[2022-03-30] MEDS: Naproxen 500 MG Tablet PO (21:51)
[2022-03-30] MEDS: predniSONE 20 MG Tablet 40 MG PO (21:51)
[2022-03-30 21:56] VITALS: BP 135/94
== END 2022-03-30 21:57 | disposition home or self-care (01) ==
PROVIDERS: Emergency Provider Emergency Medicine; Visit Provider Emergency Medicine
DX: M54.30 Sciatica, unspecified side (principal); M79.605 Pain in left leg; M25.572 Pain in left ankle and joints of left foot
CPT/HCPCS: 73590; 99283

== ENCOUNTER → 2022-04-16 | Outpatient (CLI) | payer OTHER, SELFPAY ==
[2022-04-16 12:25] LABS: Absolute Lymphocyte Count 1.89 X10^3/uL (0.83-4.51); Absolute Neutrophil Count 3.3 X10^3/uL (2.0-7.7); Basophil# 0.02 X10^3/uL; Basophil% 0.4 % (0-1); Eosinophil# 0.03 X10^3/uL; Eosinophils% 0.5 % (0-5); Hematocrit 40.5 % (40-54); Hemoglobin 13.6 g/dL (13.0-16.5); Lymphocyte # 1.89 X10^3/ul (0.83-4.51); Lymphocyte % 33.2 % (19-41); Mean Corp Hgb Conc 33.6 g/dL (32-36); Mean Corpuscular Hgb 28.5 pg (27.0-32.0); Mean Corpuscular Volume 84.7 fL (80-94); Mean Platelet Vol. 9.5 fl (6.2-12.0); Monocyte# 0.45 X10^3/uL; Monocyte% 7.9 % (0-10); NRBC Flagged by Analyzer 0 % (0-5); Neutrophil # 3.29 X10^3/uL (2.7-7.7); Neutrophil % 57.8 % (47-70); Platelet Count 296 K/mm3 (150-450); RBC Distribution Width CV 14.5 % (11.6-14.6); RBC Distribution Width SD 44.7 fl (35.1-43.9); Red Blood Count 4.78 M/mm3 (4.6-6.2); White Blood Count 5.7 K/mm3 (4.4-11.0)
[2022-04-16 12:42] LABS: ALB/GLOB Ratio 0.9 RATIO (0.9-2.4); AST(SGOT) 12 U/L (15-37); Alanine Aminotransfer ALT/SGPT 29 U/L (16-61); Albumin, Serum 3.6 g/dL (3.2-5.0); Alkaline Phosphatase 53 U/L (45-117); Anion Gap 7 (5-15); BUN 11 mg/dL (7-18); BUN/Creat Ratio 11.9 RATIO (10-20); Calcium,Total 8.8 mg/dL (8.5-10.1); Chloride 105 mmol/L (98-107); Cholesterol 156 mg/dL (200); Creatinine, Serum 0.93 mg/dL (0.70-1.30); EST Glomerular Filtration Rate 98 mL/min (>60); Est Glom Filt Rate - Afr Amer 119 mL/min (>60); Glucose 93 mg/dL (74-106); High Density Lipoprotein 47 mg/dL; Protein, Total 7.6 g/dL (6.4-8.2); Sodium Level 140 mmol/L (136-145); Triglycerides 75 mg/dL; Very Low Density Lipoprotein 15 mg/dL (5-40)
== END | disposition home or self-care (01) ==
LOC: BIMLAB 10:07
PROVIDERS: PCP Internal Medicine; Visit Provider Internal Medicine
DX: I10 Essential (primary) hypertension (principal)
CPT/HCPCS: 36415; 80053; 80061; 85025

== ENCOUNTER → 2022-09-09 | Outpatient (CLI) | payer BC, SELFPAY ==
[2022-09-09 16:37] LABS: Absolute Lymphocyte Count 2.16 X10^3/uL (0.83-4.51); Absolute Neutrophil Count 1.4 X10^3/uL (2.0-7.7); Basophil# 0.02 X10^3/uL; Basophil% 0.5 % (0-1); Eosinophil# 0.05 X10^3/uL; Eosinophils% 1.3 % (0-5); Hematocrit 41.6 % (40-54); Hemoglobin 13.5 g/dL (13.0-16.5); Lymphocyte # 2.16 X10^3/ul (0.83-4.51); Lymphocyte % 55.2 % (19-41); Mean Corp Hgb Conc 32.5 g/dL (32-36); Mean Corpuscular Hgb 27.4 pg (27.0-32.0); Mean Corpuscular Volume 84.4 fL (80-94); Mean Platelet Vol. 9.6 fl (6.2-12.0); Monocyte# 0.25 X10^3/uL; Monocyte% 6.4 % (0-10); NRBC Flagged by Analyzer 0 % (0-5); Neutrophil # 1.43 X10^3/uL (2.7-7.7); Neutrophil % 36.6 % (47-70); Platelet Count 311 K/mm3 (150-450); RBC Distribution Width CV 14.1 % (11.6-14.6); RBC Distribution Width SD 43.5 fl (35.1-43.9); Red Blood Count 4.93 M/mm3 (4.6-6.2); White Blood Count 3.9 K/mm3 (4.4-11.0)
[2022-09-09 17:06] LABS: ALB/GLOB Ratio 1.1 RATIO (0.9-2.4); AST(SGOT) 13 U/L (15-37); Alanine Aminotransfer ALT/SGPT 24 U/L (16-61); Alkaline Phosphatase 50 U/L (45-117); Anion Gap 7 (5-15); BUN 9 mg/dL (7-18); BUN/Creat Ratio 8.7 RATIO (10-20); Calcium,Total 9.2 mg/dL (8.5-10.1); Chloride 106 mmol/L (98-107); Creatinine, Serum 1.03 mg/dL (0.70-1.30); EST Glomerular Filtration Rate 87 mL/min (>60); Est Glom Filt Rate - Afr Amer 105 mL/min (>60); Globulin 3.8 g/dL (2.2-4.2); Glucose 96 mg/dL (74-106); Potassium 4.1 mmol/L (3.5-5.1); Protein, Total 7.8 g/dL (6.4-8.2); Sodium Level 139 mmol/L (136-145); T4 Free Direct 0.95 ng/dL (0.76-1.46); Thyroid Stim Hormone (TSH) 1.77 uIU/mL (0.358-3.74)
[2022-09-09 17:34] LABS: Vitamin B12 538 pg/mL (211-911)
== END | disposition home or self-care (01) ==
PROVIDERS: PCP Internal Medicine; Referring Provider Internal Medicine; Visit Provider Internal Medicine
DX: F41.9 Anxiety disorder, unspecified (principal); F32.A Depression, unspecified
CPT/HCPCS: 36415; 80053; 82607; 84439; 84443; 85025

== ENCOUNTER 2022-11-03 00:57 | Emergency (ER) | payer BC, SELFPAY ==
[2022-11-03 00:57] VITALS: BP 198/97; PULSE 101; RESP 19; TEMP 35.6; O2SAT 100; BMI 25.4
--- NOTE | 2022-11-03 01:03 | EKG12_ITS ---
Test Reason : Blood Pressure : / mmHG Vent. Rate : 084 BPM Atrial Rate : 084 BPM P-R Int : 162 ms QRS Dur : 096 ms QT Int : 346 ms P-R-T Axes : 057 053 016 degrees QTc Int : 408 ms Normal sinus rhythm Minimal voltage criteria for LVH, may be normal variant ( Sokolow-Thomas ) Nonspecific T wave abnormality Abnormal ECG Confirmed by JUSTIN PONCE, CLARI ([id number]), desk editor SABINA HDEZ ([id number]) on 11/04/2022 12:10:34 P M Referred By: SHIRLENE Confirmed By:CAROL ANDERSON MD
[2022-11-03 01:10] LABS: Absolute Lymphocyte Count 5.42 X10^3/uL (0.83-4.51); Absolute Neutrophil Count 2.1 X10^3/uL (2.0-7.7); Basophil# 0.03 X10^3/uL; Basophil% 0.4 % (0-1); Eosinophil# 0.15 X10^3/uL; Eosinophils% 1.8 % (0-5); Hematocrit 43.4 % (40-54); Hemoglobin 14.4 g/dL (13.0-16.5); Lymphocyte # 5.42 X10^3/ul (0.83-4.51); Lymphocyte % 64.4 % (19-41); Mean Corp Hgb Conc 33.2 g/dL (32-36); Mean Corpuscular Hgb 27.9 pg (27.0-32.0); Mean Corpuscular Volume 83.9 fL (80-94); Mean Platelet Vol. 9.3 fl (6.2-12.0); Monocyte% 8.3 % (0-10); NRBC Flagged by Analyzer 0 % (0-5); Neutrophil # 2.11 X10^3/uL (2.7-7.7); POSITIVE DIFFERENTIAL YES; POSITIVE MORPHOLOGY YES; Platelet Count 301 K/mm3 (150-450); RBC Distribution Width CV 13.7 % (11.6-14.6); RBC Distribution Width SD 42.3 fl (35.1-43.9); Red Blood Count 5.17 M/mm3 (4.6-6.2); White Blood Count 8.4 K/mm3 (4.4-11.0)
--- NOTE | 2022-11-03 01:15 | RAD_ITS ---
INDICATION: chest pain EXAMINATION/TECHNIQUE: X-RAY - XR Chest 1 View COMPARISON: None. FINDINGS: LINES/DEVICES: None. LUNGS: No pulmonary edema or focal airspace consolidation. No sizable pleural effusion. No pneumothorax detected. MEDIASTINUM AND CARDIOVASCULAR STRUCTURES: Heart size within normal limits. Mediastinal contours unremarkable. BONES AND SOFT TISSUES: No acute findings. RAD/Chest 1 View (Portable) IMPRESSION: No radiographic evidence of acute cardiopulmonary disease. Electronically Signed: Bennie Strickland MD at 1:33 EDT ,
[2022-11-03 01:38] LABS: Differential Indicated SCAN CRITERIA MET
[2022-11-03 01:43] LABS: Anion Gap 6 (5-15); BUN 11 mg/dL (7-18); BUN/Creat Ratio 10.6 RATIO (10-20); Calcium,Total 9.4 mg/dL (8.5-10.1); Chloride 103 mmol/L (98-107); Creatinine, Serum 1.04 mg/dL (0.70-1.30); EST Glomerular Filtration Rate 86 mL/min (>60); Est Glom Filt Rate - Afr Amer 104 mL/min (>60); Estimated Creatinine Clearance 110.97 ml/min; Glucose 105 mg/dL (74-106); Potassium 3.4 mmol/L (3.5-5.1); Sodium Level 140 mmol/L (136-145); Troponin-I HS 4 pg/mL (3.0-78.0)
[2022-11-03 03:38] VITALS: BP 118/85; PULSE 64; RESP 16; O2SAT 98
[2022-11-03 03:48] LABS: Troponin-I HS 4 pg/mL (3.0-78.0)
--- NOTE | 2022-11-03 04:32 | ED.VIS.CHEST ---
HPI History of Present Illness Chief Complaint: Chest Pain Informant: patient Onset/Context/Timing Onset: Days Activity at onset: gradual Timing: Intermittent Quality: Positive for Tightness Current Severity: Mild Maximum Severity: Moderate Narrative Narrative: Patient presents secondary to 1 week history of intermittent chest tightness. He states it feels like a tension across his chest between the pectoral region and midline. He does not feel short of breath. He states sometimes the pain is worse when he bends over. He has not had significant reflux symptoms. PFSH PFS Medical History Anxiety and depression Back pain Frequent headaches Home Medications NK 11/03/22 [History Last Taken Unknown] Allergy/AdvReac Type Severity Reaction Status Date / Time No Known Allergies Allergy Verified 10/16/22 10:51 Family History Father Cancer Mother Cancer Other Arthritis Diabetes Heart disease Hyperlipemia Hypertension Social History Smoking Status: Never smoker alcohol intake: current alcohol intake frequency: holidays/special occasions only substance use type: does not use what type of physical activity do you participate in: running frequency: 1-2 times per week ROS ROS ED Constitutional Constitutional ED: Denies chills or fever(s) Eyes Eyes: Denies change in vision or discharge from eye(s) ENT ENT ED: Denies discharge from eye(s), rhinorrhea or sore throat Cardiovascular Cardiovascular: Reports chest pain; Denies palpitations Respiratory/Chest Respiratory/Chest: Denies cough or dyspnea Gastrointestinal Gastrointestinal: Denies abdominal pain, nausea or vomiting Genitourinary Genitourinary ED: Denies dysuria Musculoskeletal Musculoskeletal: Denies back pain or extremity pain Integumentary Denies Abrasions or rash Neurologic Neurologic: Denies headache(s) or weakness Psychiatric Psychiatric: Denies anxiety or depression Allergic/Immunologic Allergic/Immunologic ED: Denies lip swelling or urticaria EXAM Physical Exam Const Vital Signs: 11/03/22 00:57 11/03/22 01:00 11/03/22 01:04 Temperature 96.1 F L Temperature Source Temporal Pulse Rate 101 H Respiratory Rate 19 H Respiratory Effort Normal Non-Labored Blood Pressure 198/97 H Blood Pressure Mean 130 Pulse Ox 100 Oxygen Delivery Method Room Air Room Air 11/03/22 03:38 11/03/22 04:54 Temperature Temperature Source Pulse Rate 64 60 Respiratory Rate 16 14 Respiratory Effort Blood Pressure 118/85 H 119/82 H Blood Pressure Mean 96 Pulse Ox 98 99 Oxygen Delivery Method Room Air Positive well nourished and well developed General Appearance ED: well developed HEENT Reports normocephalic and head/scalp atraumatic Eyes PERRL and EOMs intact bilaterally Neck supple Chest Wall inspection of chest normal and palpation of chest normal Resp normal respiratory effort and clear to auscultation bilaterally Cardio regular rate and regular rhythm GI normal to inspection, nondistended, normoactive bowel sounds Palpation: soft Extremity normal to inspection Neuro oriented x3 and no sensory deficits noted Sensorium / Orientation: alert Motor Exam: strength 5/5 throughout Psych mental status grossly normal Skin no rashes or lesions noted Heart Score History: Slightly/Non-Suspicious ECG: Normal Age: </= 45 years Risk Factors: No Risk Factors Score: 0 MDM MDM MDM Narrative Medical decision making narrative: Patient placed on residential monitor. EKG obtained to evaluate for cardiac arrhythmia/ischemia. Labwork obtained to evaluate for leukocytosis, anemia, and electrolyte derangement. Chest x-ray obtained to evaluate for acute lung pathology, cardiac size, or mediastinal abnormality. History & Record Review Discussion w/independent historian: Patient and Family Lab Data Attestation: I reviewed the patient's lab results. Labs: Laboratory Results - last 24 hr 11/03/22 11/03/22 11/03/22 01:01 01:01 03:21 WBC 8.4 RBC 5.17 Hgb 14.4 Hct 43.4 MCV 83.9 MCH 27.9 MCHC 33.2 RDW Std Deviation 42.3 RDW Coeff of Dwayne 13.7 Plt Count 301 MPV 9.3 Immature Gran % (Auto) 0.100 Neut % (Auto) 25.0 L Lymph % (Auto) 64.4 H [place] % (Auto) 8.3 Eos % (Auto) 1.8 Baso % (Auto) 0.4 Absolute Neuts (auto) 2.1 Absolute Lymphs (auto) 5.42 H Nucleated RBC % 0 Sodium 140 Potassium 3.4 L Chloride 103 Carbon Dioxide 31.0 Anion Gap 6 BUN 11 Creatinine 1.04 Estim Creat Clear Calc 110.97 Est GFR (MDRD) Af Amer 104 Est GFR (MDRD) Non-Af 86 BUN/Creatinine Ratio 10.6 Glucose 105 Calcium 9.4 Troponin I High Sens 4 4 Radiography Chest X-Ray - ED: 1 View, Read by ED Physician, Normal, Heart, Lungs and Mediastinum Diagnostic Testing: Clinical Impression(s) from Imaging Studies Chest X-Ray 11/03/22 01:15 IMPRESSION: No radiographic evidence of acute cardiopulmonary disease. 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 Chest x-ray per my interpretation feels no acute abnormalities. Radiology interpretation is reviewed. CBC is unremarkable. Chemistry studies normal. Troponin is 4 with 2-hour repeat also returning at 4. Test results discussed with patient and family at bedside. He will continue supportive care. Return instructions provided. I did encourage him to follow-up with his primary care physician if not improving in the next week. If he has further symptoms including worsening chest pain especially with any exertion he is to return for repeat evaluation. Discharge Plan Triage Chief Complaint: Chest Pain ED Provider: Leslee Hebert Dx/Rx/DC Orders Clinical Impression: Chest pain Instructions: ED Chest Pain, Noncardiac Prescriptions: No Action NK Primary Care Provider: Arnold Garces Referrals: Arnold Garces MD [Primary Care Provider] - 1 Week if not improving Disposition Disposition: Home, Self Care Discharge Date/Time: 11/03/22 05:00
[2022-11-03 04:54] VITALS: BP 119/82; PULSE 60; RESP 14; O2SAT 99
== END 2022-11-03 05:00 | disposition home or self-care (01) ==
PROVIDERS: Emergency Provider Emergency Medicine; PCP Internal Medicine; Visit Provider Emergency Medicine
DX: R07.89 Other chest pain (principal)
CPT/HCPCS: 71045; 80048; 84484; 85025; 93005; 99284; A4216

== ENCOUNTER 2023-09-01 22:10 | Emergency (ER) | payer BC, SELFPAY ==
[2023-09-01 22:12] VITALS: BP 162/108; PULSE 104; RESP 18; TEMP 36.1; O2SAT 100; BMI 26.4
--- OUTSIDE RECORDS SUMMARY | 2023-09-01 22:55 | XMS RPT_ITS | CCD ---
Author Name Unknown Address [address] [place] [address] Organization [facility] Care Team Providers Care Assistant Research Scientist Name Role Phone Unavailable Primary Care Provider TESSA Mohan Referring Unavailable Problems Problem Classification Problem Date Documented Da te Episodic/Chronic Other male genital disorders (2 sources) Testicular mass; Translations: [Other specified disorders of the male genital organs] Episodic Other male genital disorders (1 source) Cyst of testis; Translations: [Benign cyst of testis] Episodic Other male genital disorders (1 source) Other specified disorders of the male genital organs; Translations: [Testicular lump] Onset: 11-14-2022 Episodic Residual codes; unclassified (1 source) Procedure not done; Translations: [Procedure and treatment not carried out, unspecified reason] Episodic Results Test Name Value Interpretation Reference Range Facil ity Vital Signs Date Time Vital Sign Value Performing Clinician Abbie brooks 11-08-2022 12:01-0400 Body temperature 97.11 [degF] Tessa Heaton CCNP.ANALYTICS SPECIALIST Work Phone: [facility] 11-08-2022 12:01-0400 Body weight 87.73 kg Tessa Heaton CCNP.ANALYTICS SPECIALIST Work Phone: [facility] 11-08-2022 12:01-0400 Diastolic blood pressure 104 mm[Hg] Tessa Heaton CCNP.ANALYTICS SPECIALIST Work Phone: [facility] 11-08-2022 12:01-0400 Heart rate 114 /min Tessa Heaton CCNP.ANALYTICS SPECIALIST Work Phone: [facility] 11-08-2022 12:01-0400 Respiratory rate 18 /min Tessa Heaton CCNP.ANALYTICS SPECIALIST Work Phone: [facility] 11-08-2022 12:01-0400 SaO2% (BldA) [Mass fraction] 99 % Tessa Heaton CCNP.MICHAEL Work Phone: [facility] 11-08-2022 12:01-0400 Systolic blood pressure 172 mm[Hg] Tessa Heaton CCNP.MICHAEL Work Phone: [facility] Encounters Encounter Date Encounter Type Care Provider Facility Start: 11-14-2022 Telephone encounter Tessa perez CCNP.ANALYTICS SPECIALIST Work Phone: [facility] Procedures Date Procedure Procedure Detail Performing Clinician Start: 11-14-2022 Dup-scan artl jake abdl/pel/scrot&/rpr orgn com Tessa Heaton CCNP.MICHAEL Work Phone: Start: 11-14-2022 Us scrotum & contents J marine Heaton CCNP.ANALYTICS SPECIALIST Work Phone: Plan of Treatment Date Care Activity Detail Author Start: 04-18-2023 Covid-19 Vaccine ( season) Covid-19 Vaccine ( season) [facility] Start: 04-18-2023 Influenza vaccination Influenza Vaccine (#1) [facility] Start: 08-18-2022 DEPRESSION ASSESSMENT DEPRESSION ASSESSMENT [facility] Start: 04-18-2022 Influenza vaccination INFLUENZA (#1) [facility] Start: 07-18-2021 COVID-19 VACCINE (2 - Pfizer series) COVID-19 VACCINE (2 - Pfizer series) [facility] Start: 2021 Lipid 1996 panel - Serum or Plasma Lipid Screening [facility] Start: 2021 LIPID SCREEN LIPID SCREEN [facility] Start: 2005 Urine microalbumin profile [facility] Start: 2004 HEPATITIS C SCREENING HEPATITIS C SCREENING [facility] Start: 2004 HIV SCREENING HIV SCREENING [facility] Start: 1986 HEPATITIS B (1 of 3 - 3-dose series) HEPATITIS B (1 of 3 - 3-dose series) [facility] Start: 1986 Hepatitis B Vaccine (1 of 3 - 3-dose series) Hepatitis B Vaccine (1 of 3 - 3-dose series) [facility] End: 12-08-2023 Dup-scan artl jake abdl/pel/scrot&/rpr orgn com US DOPPLER COMPLETE Radiology STAT Testicular lump 1 Occurrences starting 11/08/2022 until 12/08/2023 [facility] Work Phone: Payers Date Payer Category Payer Unknown [employer] C[employer] PPO OOS [id number] 2022-Present [phone] [address] [place] [address] PPO [id number] 2022 Unknown [id number] Social History Date Type Detail Facility Tobacco smoking stat [facility] Tobacco smoking consumption unknown [facility] Start: 1985 Sex Assigned At Not on file [facility] Start: 11-08-2022 Tobacco smoking stat [facility] Never smoked tobacco [facility] Start: 11-08-2022 Tobacco use and exposure Smokeless t obacco non-user [facility] Start: 11-08-2022 History of Social function [facility] Start: 11-08-2022 Tobacco use panel [facility] Clinical Notes 10-18-2022 to 11-14-2022 Telephone Encounter - Greta Leyva LPN - 11/14/2022 12:03 PM EDTTelephone Encounter - Sherri Haney LPN - 11/14/2022 11:57 AM SHALONDATTessa Santillan RDMS - 11/14/2022 8:30 AM EDT Note Date & Type Note Facility 11-14-2022 Miscellaneous Notes Spoke with pt and information listed below given. Pt verbalizes understanding. Greta Leyva LPN Left message for patient to return call for results and recommendations.Sherri Haney LPN Results just popped in. Please let him know that the US shows no masses. It does reveal a cyst (non cancerous). I have placed a urology consult if symptoms persist. Can we reach out to patient as it appears he has not had scheduled US from [facility] last week. Did he have it performed at another facility ? documented in this encounter [facility] 11-14-2022 Note HNO ID: [id number] Author: Tessa Santillan RDMS Service: ? Author Type: Photo Offset Printer Type: Progress Notes Filed: 11/14/2022 9:59 AM Note Text: Radiology Service Progress Note PATIENT NAME: Anshul Holloway DATE OF SERVICE: November 14, 2022 TIME: 9:59 AM PATIENT IDENTITY VERIFICATION COMPLETED USING TWO (2) IDENTIFIERS: Name and Date of confirmed by patient verbally. FALL SCREENING: Has the patient had 2 falls in the last year or 1 fall with injury or currently using an Ambulatory Assistive Device (Walker, Cane, Wheelchair, Crutches, etc.)? No PATIENT GENDER DATA: Male PATIENT RELEVANT IMPLANT DATA REVIEWED: Not Applicable RADIOLOGY DEPARTMENT: Ultrasound PERIPHERAL IV DATA: Not applicable SIGNED BY: Tessa Santillan RDMS RVT November 14, 2022 9:59 AM [facility] 11-14-2022 History of Present illness Narrative Radiology Service Progress Note PATIENT NAME: Anshul Holloway DATE OF SERVICE: November 14, 2022 TIME: 9:59 AM PATIENT IDENTITY VERIFICATION COMPLETED USING TWO (2) IDENTIFIERS: Name and Date of confirmed by patient verbally. FALL SCREENING: Has the patient had 2 falls in the last year or 1 fall with injury or currently using an Ambulatory Assistive Device (Walker, Cane, Wheelchair, Crutches, etc.)? No PATIENT GENDER DATA: Male PATIENT RELEVANT IMPLANT DATA REVIEWED: Not Applicable RADIOLOGY DEPARTMENT: Ultrasound PERIPHERAL IV DATA: Not applicable SIGNED BY: Tessa Santillan RDMS RVT November 14, 2022 9:59 AM documented in this encounter [facility] 11-08-2022 Note HNO ID: [id number] Author: Tessa Heaton APRN.ANALYTICS SPECIALIST Service: ? Author Type: Nurse Practitioner Type: Progress Notes Filed: 11/08/2022 2:23 PM Note Text: This note was created using [employer]CHICA. Subjective Anshul Holloway is a 37 year old male. 37 years old male presented with acute illness started yesterday Patient reported that during routine self assessment in shower last night he noted small size bump on his right testicle. Patient reported that bump is not sore and wasn't tender with palpation. He reported history of similar size bump on his neck in 2019 when he went to ED and was prescribed ATB for it. The bump on his neck resolved on it's own. Denies recent cold, flu or other acute illnesses, reported going to ED five days ago with a chest pain and high blood pressure, but was told that it is probably due to stress.Reported occasional stress related headache that resolves on it's own. Denies chest pain, palpitations, SOB, edema to lower extremity. Denies abdominal pain, nausea, vomiting, diarrhea. Denies urgency or frequency with urination, pain or burning with urination. Patient reported stop taking prescribed hydrochlorothiazide weeks ago because his BP is good when he is checking it every day at home. The history is provided by the patient. No bark peeler was used. Male Problem This is a new problem. The current episode started yesterday. The problem occurs constantly. The problem has been unchanged. Associated symptoms include headaches. Pertinent negatives include no abdominal pain, anorexia, arthralgias, change in bowel habit, chest pain, chills, congestion, coughing, diaphoresis, fatigue, fever, joint swelling, myalgias, nausea, neck pain, numbness, rash, sore throat, swollen glands, urinary symptoms, vertigo, visual change, vomiting or weakness. Nothing aggravates the symptoms. He has tried nothing for the symptoms. The treatment provided no relief. History reviewed. No pertinent past medical history. History reviewed. No pertinent surgical history. ALLERGIES Patient has no known allergies. MEDICATIONS No prescriptions on file. History reviewed. No pertinent family history. Social History Tobacco Use Smoking status: Never Smokeless tobacco: Never Review of Systems Constitutional: Negative for activity change, appetite change, chills, diaphoresis, fatigue, fever and unexpected weight change. HENT: Negative for congestion, ear discharge, ear pain, hearing loss, mouth sores, nosebleeds, postnasal drip, rhinorrhea, sinus pressure, sinus pain, sneezing, sore throat and trouble swallowing. Eyes: Negative for pain, discharge, redness, itching and visual disturbance. Respiratory: Negative for cough, chest tightness, shortness of breath and wheezing. Cardiovascular: Negative for chest pain, palpitations and leg swelling. Gastrointestinal: Negative for abdominal distention, abdominal pain, anorexia, blood in stool, change in bowel habit, constipation, diarrhea, nausea and vomiting. Endocrine: Negative for cold intolerance and heat intolerance. Genitourinary: Positive for difficulty urinating. Negative for decreased urine volume, dysuria, flank pain, frequency, genital sores, hematuria, penile discharge, penile pain, penile swelling, scrotal swelling, testicular pain and urgency. Musculoskeletal: Negative for arthralgias, back pain, gait problem, joint swelling, myalgias and neck pain. Skin: Negative for color change, pallor, rash and wound. Allergic/Immunologic: Negative for environmental allergies, food allergies and immunocompromised state. Neurological: Positive for headaches. Negative for dizziness, vertigo, seizures, weakness, light-headedness and numbness. Psychiatric/Behavioral: Negative for behavioral problems, decreased concentration and sleep disturbance. The patient is not nervous/anxious. Objective BP 172/104 Pulse 114 Temp 36.2 ?C (97.1 ?F) Resp 18 Wt 87.7 kg (193 lb 6.4 oz) SpO2 99% Physical Exam Vitals and nursing note reviewed. Exam conducted with a assistant distribution manager present. Constitutional: General: He is not in acute distress. Appearance: Normal appearance. He is normal weight. He is not ill-appearing, toxic-appearing or diaphoretic. HENT: Head: Normocephalic and atraumatic. Right Ear: Tympanic membrane, ear canal and external ear normal. There is no impacted cerumen. Left Ear: Tympanic membrane, ear canal and external ear normal. There is no impacted cerumen. Nose: Nose normal. No congestion or rhinorrhea. Mouth/Throat: Mouth: Mucous membranes are moist. Pharynx: Oropharynx is clear. No oropharyngeal exudate or posterior oropharyngeal erythema. Eyes: General: No scleral icterus. Right eye: No discharge. Left eye: No discharge. Conjunctiva/sclera: Conjunctivae normal. Pupils: Pupils are equal, round, and reactive to light. Neck: Vascular: No carotid bruit. Cardiovascular: Rat (more content not included)... [facility] 11-08-2022 History of Present illness Narrative This note was created using ACHICA. Subjective Anshul Holloway is a 37 year old male. 37 years old male presented with acute illness started yesterday Patient reported that during routine self assessment in shower last night he noted small size bump on his right testicle. Patient reported that bump is not sore and wasn't tender with palpation. He reported history of similar size bump on his neck in 2019 when he went to ED and was prescribed ATB for it. The bump on his neck resolved on it's own. Denies recent cold, flu or other acute illnesses, reported going to ED five days ago with a chest pain and high blood pressure, but was told that it is probably due to stress.Reported occasional stress related headache that resolves on it's own. Denies chest pain, palpitations, SOB, edema to lower extremity. Denies abdominal pain, nausea, vomiting, diarrhea. Denies urgency or frequency with urination, pain or burning with urination. Patient reported stop taking prescribed hydrochlorothiazide weeks ago because his BP is good when he is checking it every day at home. The history is provided by the patient. No bark peeler was used. Male Problem This is a new problem. The current episode started yesterday. The problem occurs constantly. The problem has been unchanged. Associated symptoms include headaches. Pertinent negatives include no abdominal pain, anorexia, arthralgias, change in bowel habit, chest pain, chills, congestion, coughing, diaphoresis, fatigue, fever, joint swelling, myalgias, nausea, neck pain, numbness, rash, sore throat, swollen glands, urinary symptoms, vertigo, visual change, vomiting or weakness. Nothing aggravates the symptoms. He has tried nothing for the symptoms. The treatment provided no relief. History reviewed. No pertinent past medical history. History reviewed. No pertinent surgical history. ALLERGIES Patient has no known allergies. MEDICATIONS No prescriptions on file. History reviewed. No pertinent family history. Social History Tobacco Use Smoking status: Never Smokeless tobacco: Never Review of Systems Constitutional: Negative for activity change, appetite change, chills, diaphoresis, fatigue, fever and unexpected weight change. HENT: Negative for congestion, ear discharge, ear pain, hearing loss, mouth sores, nosebleeds, postnasal drip, rhinorrhea, sinus pressure, sinus pain, sneezing, sore throat and trouble swallowing. Eyes: Negative for pain, discharge, redness, itching and visual disturbance. Respiratory: Negative for cough, chest tightness, shortness of breath and wheezing. Cardiovascular: Negative for chest pain, palpitations and leg swelling. Gastrointestinal: Negative for abdominal distention, abdominal pain, anorexia, blood in stool, change in bowel habit, constipation, diarrhea, nausea and vomiting. Endocrine: Negative for cold intolerance and heat intolerance. Genitourinary: Positive for difficulty urinating. Negative for decreased urine volume, dysuria, flank pain, frequency, genital sores, hematuria, penile discharge, penile pain, penile swelling, scrotal swelling, testicular pain and urgency. Musculoskeletal: Negative for arthralgias, back pain, gait problem, joint swelling, myalgias and neck pain. Skin: Negative for color change, pallor, rash and wound. Allergic/Immunologic: Negative for environmental allergies, food allergies and immunocompromised state. Neurological: Positive for headaches. Negative for dizziness, vertigo, seizures, weakness, light-headedness and numbness. Psychiatric/Behavioral: Negative for behavioral problems, decreased concentration and sleep disturbance. The patient is not nervous/anxious. Objective BP 172/104 Pulse 114 Temp 36.2 C (97.1 F) Resp 18 Wt 87.7 kg (193 lb 6.4 oz) SpO2 99% Physical Exam Vitals and nursing note reviewed. Exam conducted with a assistant distribution manager present. Constitutional: General: He is not in acute distress. Appearance: Normal appearance. He is normal weight. He is not ill-appearing, toxic-appearing or diaphoretic. HENT: Head: Normocephalic and atraumatic. Right Ear: Tympanic membrane, ear canal and external ear normal. There is no impacted cerumen. Left Ear: Tympanic membrane, ear canal and external ear normal. There is no impacted cerumen. Nose: Nose normal. No congestion or rhinorrhea. Mouth/Throat: Mouth: Mucous membranes are moist. Pharynx: Oropharynx is clear. No oropharyngeal exudate or posterior oropharyngeal erythema. Eyes: General: No scleral icterus. Right eye: No discharge. Left eye: No discharge. Conjunctiva/sclera: Conjunctivae normal. Pupils: Pupils are equal, round, and reactive to light. Neck: Vascular: No carotid bruit. Cardiovascular: Rate and Rhythm: Normal rate and regular rhythm. Pulses: Normal pulses. Heart sounds: Normal heart sounds. No murmur heard. No friction rub. No gallop. Pulmonary: Effort: Pulmonary effort is normal. No respiratory distress. Breath sounds: Normal breath sounds. No stridor. No wheezing, rhonchi or rales. Chest: Chest wall: No tenderness. Abdominal: General: Abdomen is flat. Bowel sounds are normal. There is no distension. Palpations: Abdomen is soft. There is no mass. Tenderness: There is no abdominal tenderness. There is no right CVA tenderness, left CVA tenderness, guarding or rebound. Hernia: No hernia is present. Genitourinary: Pubic Area: No rash or pubic lice. Penis: Normal and circumcised. Testes: Normal. Right: Mass, tenderness, swelling, testicular hydrocele or varicocele not present. Right testis is descended. Left: Mass, tenderness, swelling, testicular hydrocele or varicocele not present. Left testis is descended. Comments: No bump or pimple noted on right testicle during assessment Musculoskeletal: General: No swelling, tenderness, deformity or signs of injury. Normal range of motion. Cervical back: Normal range of motion and neck supple. No rigidity or tenderness. Right lower leg: No edema. Left lower leg: No edema. Lymphadenopathy: Cervical: No cervical adenopathy. Skin: General: Skin is warm and dry. Capillary Refill: Capillary refill takes less than 2 seconds. Coloration: Skin is not jaundiced or pale. Findings: No bruising, erythema, lesion or rash. Neurological: General: No focal deficit present. Mental Status: He is alert and oriented to person, place, and time. Cranial Nerves: No cranial nerve deficit. Sensory: No sensory deficit. Motor: No weakness. Coordination: Coordination normal. Gait: Gait normal. Deep Tendon Reflexes: Reflexes normal. Psychiatric: Mood and Affect: Mood normal. Behavior: Behavior normal. Thought Content: Thought content normal. Assessment and Plan ASSESSMENT/PLAN: 1. Testicular lump - ICD9: 608.89, ICD10: N50.89 Acute onset of noting yesterday evening. - no lump on right testicle noted during assessment, will obtain ultrasound to rule out mass. - US SCROTUM AND CONTENTS Scheduled for 11/14/22. Luzma Armstrong TEACHING PROVIDER (Physician/PA/CCNP) NOTE OF PERSONAL INVOLVEMENT IN CARE: I have personally seen and examined the patient and performed the medical decision-making components. I have reviewed the Advanced Practice Registered Nurse (CCNP) Student's documentation and verified the findings in the note as written. Any additions or changes are noted in bold/italics. Signature: Tessa Heaton Date: 11/08/2022 Time: 2:12 PM documented in this encounter [facility] 10-18-2022 Note HNO ID: [id number] Author: Geraldo Mcdonald APRN.MICHAEL Service: ? Author Type: Nurse Practitioner Type: Progress Notes Filed: 10/18/2022 4:14 PM Note Text: Nontoxic-appearing male presents urgent care requesting evaluation for anxiety depression. Patient states currently under care for anxiety depression by a PCP/counseling center. Presents today for extension on work related documentation. Patient has no other concerns today. On evaluation I recommend patient be seen by PCP or counseling centered regarding work related paperwork associated with his diagnosis of anxiety depression. Patient verbalized understanding agrees with plan of care. Geraldo Mcdonald APRN.CNP [facility] 10-18-2022 History of Present illness Narrative Nontoxic-appearing male presents urgent care requesting evaluation for anxiety depression. Patient states currently under care for anxiety depression by a PCP/counseling center. Presents today for extension on work related documentation. Patient has no other concerns today. On evaluation I recommend patient be seen by PCP or counseling centered regarding work related paperwork associated with his diagnosis of anxiety depression. Patient verbalized understanding agrees with plan of care. Geraldo Mcdonald APRN.ANALYTICS SPECIALIST documented in this encounter [facility] Diagnosis Testicular lump- Primary Other specified disorder of male genital organs [facility] Diagnosis Testicular cyst- Primary Other specified disorder of male genital organs [facility] Diagnosis Testicular lump Other specified disorder of male genital organs [facility] Diagnostic Procedure Only (Urgent) - Pending Review Specialty Diagnoses / Procedures Referred By Contac t Referred To Contact US IMAGING Diagnoses Testicular lump Procedures US DOPPLER COMPLETE DUP-SCAN ARTL JAKE ABDL/PEL/SCROT&/RPR ORGN Tessa Redd APRN.ANALYTICS SPECIALIST [address] [place] [address] Us Imaging Referral ID Status Reason Start Date Expiration Date Visits Requested Visits Authorized [id number] Pending Review Auto-Generat ed Referral 11/08/2022 12/08/2023 1 1 * Diagnostic Procedure Only (Urgent) - Authorized Specialty Diagnoses / Procedures Referred By Contac t Referred To Contact US IMAGING Diagnoses Testicular lump Procedures US SCROTUM AND CONTENTS US SCROTUM & CONTENTS Tessa Heaton APRN.ANALYTICS SPECIALIST [address] [place] [address] Us Imaging Referral ID Status Reason Start Date Expiration Date Visits Requested Visits Authorized [id number] Authorized Auto-Generat ed Referral 11/08/2022 12/08/2023 1 1 [facility] for referral (narrative)* Diagnostic Procedure Only (Urgent) - Closed Specialty Diagnoses / Procedures Referred By Contac t Referred To Contact US IMAGING Diagnoses Testicular lump Procedures US SCROTUM AND CONTENTS US SCROTUM & CONTENTS Tessa Heaton APRN.ANALYTICS SPECIALIST [address] [place] [address] [place] [address] Referral ID Status Reason Start Date Expiration Date V isits Requested Visits Authorized [id number] Closed Auto-Generate d Referral 11/08/2022 12/08/2023 1 1 [facility] Reason for Referral Specialty Diagnoses / Procedures Referred By Rosalie du Referred To Contact Urology Diagnoses Testicular cyst Procedures CONSULT TO UROLOGY OFFICE/OUTPATIENT [facility] MDM 60-74 MINUTES Tessa Heaton APRN.ANALYTICS SPECIALIST [address] [place] [address] Referral ID Status Reason Start Date Expiration Date Visits Requested Visits Authorized [id number] Authorized PCP Requested Referral 11/14/2022 11/14/2023 1 1 Summary Purpose Family History No Family History Records Found Advance Directives No Advanced Directives Records Found Additional Source Comments Source Comments (unrecognize d section and content) In the event this informatio n is protected by the Federal Confidentiality of Alcohol and Drug Abuse Patient Records regulations: The Federal rules restrict any use of the information to criminally investigate or prosecute any alcohol or drug abuse patient.[facility] the event this information is protected by the Federal Confidentiality of Alcohol and Drug Abuse Patient Records regulations: The Federal rules restrict any use of the information to criminally investigate or prosecute any alcohol or drug abuse patient.[facility] System[facility] the event this information is protected by the Federal Confidentiality of Alcohol and Drug Abuse Patient Records regulations: The Federal rules restrict any use of the information to criminally investigate or prosecute any alcohol or drug abuse patient.[facility] System[facility] the event this information is protected by the Federal Confidentiality of Alcohol and Drug Abuse Patient Records regulations: The Federal rules restrict any use of the information to criminally investigate or prosecute any alcohol or drug abuse patient.[facility] Reason for Visit (unrecogniz ed section and content) Reason Comments Results Reason Comments Radiology US Specialty Diagnoses / Procedures Referred By Rosalie du Referred To Contact US IMAGING Diagnoses Testicular lump Procedures US SCROTUM AND CONTENTS US SCROTUM & CONTENTS Tessa Heaton, REYNALDO.ANALYTICS SPECIALIST [id number] [place] [address] [place] [id number] Referral ID Status Reason Start Date Expiration Date V isits Requested Visits Authorized [id number] Closed Auto-Generate d Referral 11/08/2022 12/08/2023 1 1 (unrecognized sect ion and content) No Status Records Found INFORMATION SOURCE (unrecogn ized section and content) FOR RECORDS PERTAINING TO PATIENTS WHO ARE OR HAVE BEEN ENROLLED IN A CHEMICAL DEPENDENCY/SUBSTANCEABUSE PROGRAM, SOME INFORMATION MAY BE OMITTED. This clinical summary was aggregated from multiple sources. Caution should be exercised in using it in the provision of clinical care. This summary normalizes information from multiple sources, and as a consequence, information in this document may materially change the coding, format and clinical context of patient data. In addition, data may be omitted in some cases. CLINICAL DECISIONS SHOULD BE BASED ON THE PRIMARY CLINICAL RECORDS. [facility] [employer] [facility]. provides no warranty or guarantee of the accuracy or completeness of information in this document.
[2023-09-01 23:00] VITALS: BP 128/80; PULSE 76; RESP 13
--- NOTE | 2023-09-01 23:06 | RAD_ITS ---
STUDY: X-RAY CHEST REASON FOR EXAM: Male, 38 years old. chets pain TECHNIQUE: PA and lateral views of the chest. COMPARISON: 11/03/2022 FINDINGS: The lungs are clear and expanded. There is no demonstrated pleural abnormality. Normal size heart. Normal mediastinum and kyle. Normal visualized pulmonary arteries. Normal visualized aortic arch and descending thoracic aorta. Normal visualized thoracic spine. Normal visualized ribs, clavicles, and shoulders. There is no demonstrated abnormality of the visualized soft tissue structures of the upper abdomen. RAD/Chest PA and Lateral IMPRESSION: Normal x-ray examination of the chest. Electronically Signed: Sourav Machado MD at 23:25 [facility] ,
[2023-09-01 23:15] VITALS: BP 140/89
[2023-09-01 23:17] LABS: Absolute Lymphocyte Count 3.79 X10^3/uL (0.83-4.51); Absolute Neutrophil Count 2.5 X10^3/uL (2.0-7.7); Basophil# 0.03 X10^3/uL; Basophil% 0.4 % (0-1); Eosinophils% 1.4 % (0-5); Hematocrit 41.6 % (40-54); Hemoglobin 13.6 g/dL (13.0-16.5); Lymphocyte # 3.79 X10^3/ul (0.83-4.51); Lymphocyte % 53.5 % (19-41); Mean Corp Hgb Conc 32.7 g/dL (32-36); Mean Corpuscular Hgb 27.6 pg (27.0-32.0); Mean Corpuscular Volume 84.6 fL (80-94); Mean Platelet Vol. 9.7 fl (6.2-12.0); Monocyte# 0.62 X10^3/uL; Monocyte% 8.8 % (0-10); NRBC Flagged by Analyzer 0 % (0-5); Neutrophil # 2.53 X10^3/uL (2.7-7.7); Neutrophil % 35.8 % (47-70); Platelet Count 320 K/mm3 (150-450); RBC Distribution Width SD 43.4 fl (35.1-43.9); Red Blood Count 4.92 M/mm3 (4.6-6.2); White Blood Count 7.1 K/mm3 (4.4-11.0)
--- NOTE | 2023-09-01 23:23 | EKG12_ITS ---
Test Reason : CP Blood Pressure : / mmHG Vent. Rate : 081 BPM Atrial Rate : 081 BPM P-R Int : 170 ms QRS Dur : 092 ms QT Int : 324 ms P-R-T Axes : 062 050 028 degrees QTc Int : 376 ms Normal sinus rhythm Possible Left atrial enlargement Nonspecific ST abnormality Abnormal ECG Confirmed by BRITNI PONCE, HERNESTO ([id number]), website/blog editor SABINA HDEZ ([id number]) on 09/03/2023 9:19:18 AM Referred By: Confirmed By:HERNESTO RYDER MD
[2023-09-01 23:28] VITALS: BP 145/99; PULSE 82; RESP 14; O2SAT 98
[2023-09-01 23:41] LABS: Anion Gap 5 (5-15); BUN 12 mg/dL (7-18); BUN/Creat Ratio 10.4 RATIO (10-20); Calcium,Total 9.4 mg/dL (8.5-10.1); Chloride 105 mmol/L (98-107); Creatinine, Serum 1.15 mg/dL (0.70-1.30); EST Glomerular Filtration Rate 76 mL/min (>60); Est Glom Filt Rate - Afr Amer 92 mL/min (>60); Estimated Creatinine Clearance 99.39 ml/min; Glucose 98 mg/dL (74-106); Potassium 3.2 mmol/L (3.5-5.1); Sodium Level 141 mmol/L (136-145); Troponin-I HS 4 pg/mL (3.0-78.0)
[2023-09-02] VITALS: BP 127/91; PULSE 77; RESP 13; O2SAT 97
[2023-09-02 01:00] VITALS: BP 136/98; PULSE 65; RESP 14; O2SAT 96
--- NOTE | 2023-09-02 01:04 | EX.ED.DYSGE1 ---
HPI History of Present Illness Chief Complaint: Chest Pain Informant: patient Narrative Narrative: Patient is a 38-year-old male with past medical history of anxiety and intermittent hypertension. He states that today he ate pork belly and Ramen for dinner. He states he had a few cups of coffee after this. He states he felt some chest discomfort in the left chest wall which was better with palpation and breathing. However because of the discomfort he decided to check his blood pressure and it was elevated and this concerned him and therefore he comes to the hospital for evaluation. Patient denies any history of cardiac disease at a young age in the family he denies any illicit drug use he also denies any recent travel surgery or history of DVT/PE. [facility] Medical History Anxiety and depression Back pain Frequent headaches Home Medications NK 11/03/22 [History Last Taken Unknown] Allergy/AdvReac Type Severity Reaction Status Date / Time No Known Allergies Allergy Verified 09/01/23 22:12 Family History Father Cancer Mother Cancer Other Arthritis Diabetes Heart disease Hyperlipemia Hypertension Social History Smoking Status: Never smoker alcohol intake: current alcohol intake frequency: holidays/special occasions only substance use type: does not use what type of physical activity do you participate in: running frequency: 1-2 times per week ROS ROS ED Constitutional Constitutional ED: Denies chills or fever(s) Eyes Eyes: Denies change in vision ENT ENT ED: Denies sore throat Cardiovascular Cardiovascular: Reports chest pain; Denies palpitations or racing heartbeat Respiratory/Chest Respiratory/Chest: Denies cough or dyspnea Gastrointestinal Gastrointestinal: Denies abdominal pain, diarrhea, nausea or vomiting Genitourinary Genitourinary ED: Denies dysuria Musculoskeletal Musculoskeletal: Denies back pain, myalgias or neck pain Integumentary Denies rash Neurologic Neurologic: Denies headache(s) Hematologic/Lymphatic Hematologic/Lymphatic: Denies easy bleeding or easy bruising EXAM Physical Exam Const Vital Signs: 09/02/23 01:00 09/02/23 01:28 Pulse Rate 65 Respiratory Rate 14 Blood Pressure 136/98 H 125/78 H Blood Pressure Mean 108 93 Pulse Ox 96 Positive well nourished and well developed General Appearance ED: well developed HEENT HEENT Narrative: Normocephalic atraumatic Eyes PERRL and EOMs intact bilaterally General Eye ED: Negative for scleral icterus Neck supple and no JVD Neck Narrative: No nuchal rigidity or meningeal signs Chest Wall palpation of chest normal Chest Narrative: No bony deformity or crepitance Resp normal respiratory effort and clear to auscultation bilaterally Cardio regular rate and regular rhythm Rate: other Other Details: Heart is regular rate and rhythm without murmurs rubs or gallops Radial and carotid pulses are equal and symmetric GI normal to inspection, nondistended, normoactive bowel sounds, non-tender, non-distended and no masses GI Narrative: No voluntary guarding or rigidity or pulsatile mass Auscultation: normoactive bowel sounds Palpation: soft Extremity normal to inspection Extremity Narrative: No asymmetric edema no pitting edema negative Homans' sign bilaterally Neuro oriented x3, CN's II-XII intact bilaterally and no sensory deficits noted Sensorium / Orientation: alert Motor Exam: strength 5/5 throughout Psych mental status grossly normal Skin no rashes or lesions noted MDM MDM MDM Narrative Medical decision making narrative: Patient presented to the ER hypertensive otherwise with stable vitals. He is low risk for acute coronary syndrome based on his report of chest pain as well as vague/abnormal chest wall pain there is concern for ACS versus pneumonia versus pneumothorax. With hypertension there is also concern for acute kidney injury or electrolyte. Secondary to his a basic cardiac workup was obtained. X-ray revealed no acute lung pathology and showed no widening of the mediastinum going against potential dissection. Blood work revealed normal troponin going against acute coronary syndrome and this correlates with his normal EKG. lab work also reveals no signs of acute kidney injury or severe electrolyte derangement. Without treatment the patient's blood pressure improved 15 to 25% which is the goal of reduction in the ER he reported feeling better. Therefore at this time as he is low risk for ACS and his hypertension has resolved without treatment there is no need for further workup and he is otherwise safe for discharge History & Record Review Discussion w/independent historian: Patient Lab Data Attestation: I reviewed the patient's lab results. Labs: Laboratory Results - last 24 hr 09/01/23 22:26 WBC 7.1 RBC 4.92 Hgb 13.6 Hct 41.6 MCV 84.6 MCH 27.6 MCHC 32.7 RDW Std Deviation 43.4 RDW Coeff of Dwayne 14.0 Plt Count 320 MPV 9.7 Immature Gran % (Auto) 0.100 Neut % (Auto) 35.8 L Lymph % (Auto) 53.5 H [place] % (Auto) 8.8 Eos % (Auto) 1.4 Baso % (Auto) 0.4 Absolute Neuts (auto) 2.5 Absolute Lymphs (auto) 3.79 Nucleated RBC % 0 Sodium 141 Potassium 3.2 L Chloride 105 Carbon Dioxide 31.0 Anion Gap 5 BUN 12 Creatinine 1.15 Estim Creat Clear Calc 99.39 Est GFR (MDRD) Af Amer 92 Est GFR (MDRD) Non-Af 76 BUN/Creatinine Ratio 10.4 Glucose 98 Calcium 9.4 Troponin I High Sens 4 Radiography Diagnostic Testing: Clinical Impression(s) from Imaging Studies Chest X-Ray 09/01/23 23:06 IMPRESSION: Normal x-ray examination of the chest. Electronically Signed: Sourav Machado MD at 23:25 EST Reading Location ID and State: [id number] Tel , Service support , Chest x-ray as interpreted by the emergency medicine physician reveals no acute infiltrate pneumothorax pleural effusion or widening of the mediastinum Discharge Plan Triage Chief Complaint: Chest Pain Other Complaint: Hypertension ED Provider: Jose Carlos Morales Dx/Rx/DC Orders Clinical Impression: Acute nonspecific chest pain with low risk of coronary artery disease, Hypertension Instructions: ED Chest Pain, Uncertain Cause, ED High Blood Pressure Hypertension Prescriptions: No Action NK Primary Care Provider: Arnold Garces Referrals: Arnold Garces MD [Primary Care Provider] - Disposition Disposition: Home, Self Care Discharge Date/Time: 09/02/23 01:28 Capacity Legal [employer] Reflex Medical hold order details:: IF a medical hold is selected below, a suggested order for a MEDICAL HOLD will reflex upon signing the document. Next of kin: [place] law dictates a PRIORITY LIST for identifying legal decision-maker/legal next of kin in the following order (LNOK): 1st: The patient?s legal guardian, if any 2nd: The patient's spouse (if status is questionable, consult Risk Management) 3rd: The patient?s adult child(dylan) (majority, if multiple children) 4th: The patient?s parents 5th: The patient?s adult siblings (majority, if multiple children siblings)
[2023-09-02 01:28] VITALS: BP 125/78
== END 2023-09-02 01:28 | disposition home or self-care (01) ==
PROVIDERS: Emergency Provider Emergency Medicine; PCP Internal Medicine; Visit Provider Emergency Medicine
DX: R07.9 Chest pain, unspecified (principal); I10 Essential (primary) hypertension
CPT/HCPCS: 71046; 80048; 84484; 85025; 93005; 99284; A4216

== ENCOUNTER → 2025-03-10 | Outpatient (CLI) | payer OTHER, BC, SELFPAY ==
--- NOTE | 2025-03-10 10:42 | RAD_ITS ---
PROCEDURE: WRIST MIN 3 VIEWS 03/10/2025 REASON FOR EXAM: PAIN TECHNIQUE: WRIST MIN 3 VIEWS, right COMPARISON: None. FINDINGS: Bones: No visible fracture. No suspicious bone lesion. Joints: Normal alignment. Joint spaces preserved. No arthropathic features. Soft tissues: Soft tissues are unremarkable. RAD/Wrist min 3 Views IMPRESSION: NEGATIVE WRIST Reading Location: [id number]
--- OUTSIDE RECORDS SUMMARY | 2025-03-10 21:26 | XMS RPT_ITS | CCD ---
Author Organization [facility] Care Team Providers Care [employer] Supervisor Name Role Phone Dr. Arnold Garces Primary Care Provider [phone] Dr. Arnold Garces Attending Provider [phone] Dr. Arnold Garces Referring Provider [phone] Unavailable Primary Care Provider Dr. Arnold Salgado Primary Care Provider [phone] Dr. Arnold Garces Attending Provider [phone] Dr. Arnold Garces Referring Provider [phone] Sada PRIMARY CARE PROVIDER.Sheri RODRIGUEZ Primary Care Provider Sada PRIMARY CARE PROVIDER.Sheri RODRIGUEZ Primary Care Provider Arnold Garces Referring Unavailable Arnold Garces Primary Care Unavailable Job Wilson Attending Unavailable Job Wilson Attending Unavailable Arnold Garces Referring Unavailable Arnold Garces Primary Care Unavailable Dr. Arnold Garces MD Primary Care Provider Job Wilson Attending Provider Dr. Arnold Garces MD Referring Provider [phone] Medications Current Medications Medication Drug Class(es) Dates Sig (Normalized) Sig (Original) amLODIPine 5 mg oral tablet (15 sources) Dihydropyridine Calcium Channel Zhou Start: 09-09-2023 End: 03-28-2024 take 1 tablet by mouth once daily amLODIPine (NORVASC) 5 mg tablet Indications: Hypertension, essential Take 1 tablet by mouth once daily. 90 tablet 1 03/29/2024 Active Comment on above: Take 1 tablet by catherine once daily. cyclobenzaprine hydrochloride 10 mg oral tablet (20 sources) Muscle Relaxant Start: 10-13-2023 End: 06-22-2024 take 1 tablet by mouth three times daily as needed for muscle spasms cyclobenzaprine (FLEXERIL) 10 mg tablet Indications: Neck pain Take 1 tablet by mouth three times a day as needed for muscle spasm. 30 tablet 06/23/2024 Active Start: 09-09-2023 take 1 tablet by catherine three times daily as needed for muscle spasms cyclobenzaprine (FLEXERIL) 10 mg tablet Indications: Neck pain Take 1 tablet by mouth three times a day as needed for muscle spasm. 30 tablet 0 09/09/2023 Active Start: 03-30-2022 End: 04-16-2022 take 1 tablet by mouth twice daily as needed for muscle spasms Cyclobenzaprine 10 mg tablet Discontinued 10 mg PO TWICE A DAY as needed for muscle spasm 10 0 March 30, 2022 12:00am April 16, 2022 9:20am Start: 07-19-2019 End: 03-30-2022 take 1 tablet by mouth three times daily as needed for muscle spasms Cyclobenzaprine 10 mg tablet Discontinued 10 mg PO THREE TIMES A DAY as needed for muscle spasm 90 3 July 19, 2019 1:00am March 30, 2022 9:41pm Comment on above: Take 1 tablet by cathernie three times a day as needed for muscle spasm. iv contrast (will be provided with radiology test) (1 source) Start: 12-17-2023 End: 12-18-2023 iv contrast (will be provided with radiology test) CT LIVER W IVCON Inject, intravenously, once for 1 dose. No IV access, insert saline lock prior to the beginning of sedation, infusion, injection of imaging exam. Discontinue saline lock post exam. If Pt. has a central line or IVAD, may access for administration according to line specific nursing protocol. Once exam is complete flush line and de-access according to line specific nursing protocol in the CT contrast administration guidelines link. 1 Each 0 12/17/2023 12/18/2023 Active [facility] (Nk) (3 sources) Start: 11-03-2022 [facility] (Nk) Active November 02, 2022 11:00pm Start: 11-03-2022 [facility] (Nk) Rosalinda ctive November 03, 2022 12:00am OTC NUTRITIONAL SUPPLEMENT (7 sources) OTC NUTRITIONAL SUPPLEMENT Take 2 Tablespoonsful by mouth three times a day at 6 am, 12 pm, and 9 pm. Gallbladder Complete Cleanser Active OTC NUTRITIONAL SUPPLEMENT Take 2 Tablespoonsful by mouth three times a day at 6 am, 12 pm, and 9 pm. Gallbladder Complete Cleanser 0 Active Completed/Discontinued Medications Medication Drug Class(es) Dates Sig (Normalized) Sig (Original) acetaminophen 325 mg / HYDROcodone bitartrate 5 mg oral tablet (5 sources) Opioid Agonist Start: 03-30-2022 End: 04-16-2022 Hydrocodone-Acetami nophen 5-325 mg tablet Discontinued 1 {tbl} PO EVERY 6 HOURS as needed for pain 10 3 0 March 30, 2022 April 16, 2022 9:20am Sciatica Sciatica, unspecified side Start: 03-30-2022 End: 04-16-2022 take 1 tablet by mouth every six hours Hydrocodone-Acetaminophen Discontinued 1 TABLET PO EVERY 6 HOURS 10 3 March 30, 2022 April 16, 2022 8:20am doxycycline monohydrate 100 mg oral capsule (5 sources) Tetracycline-class Drug Start: 07-15-2019 End: 03-30-2022 take 1 capsule by mouth twice daily Doxycycline Monohydrate 100 MG capsule Discontinued 100 mg PO TWICE A DAY 14 0 July 15, 2019 1:00am March 30, 2022 9:41pm famotidine 40 mg oral tablet (5 sources) Histamine-2 Receptor Antagonist Start: 03-30-2022 End: 09-09-2022 take 1 tablet by mouth once daily Famotidine (Pepcid) 40 mg tablet Discontinued 40 mg PO DAILY 14 0 March 30, 2022 12:00am September 09, 2022 3:11pm hydroCHLOROthiazide 12.5 mg oral tablet (9 sources) Thiazide Diuretic Start: 09-09-2022 End: 10-02-2022 take 1 tablet by mouth once daily in the morning Hydrochlorothiazide 12.5 mg tablet Discontinued 12.5 mg PO EVERY MORNING 30 2 September 09, 2022 1:00am October 02, 2022 10:06am Start: 10-18-2019 End: 03-30-2022 take 1 tablet by mouth once daily Hydrochlorothiazide 12.5 mg tablet Discontinued 12.5 mg PO DAILY 30 3 October 18, 2019 1:00am March 30, 2022 9:41pm meloxicam 15 mg oral tablet (5 sources) Nonsteroidal Anti-inflammatory Drug Start: 07-19-2019 End: 03-30-2022 take 7.5-15 mg by mouth once daily as needed for pain Meloxicam 15 mg tablet Discontinued 15 mg PO DAILY as needed for back pain 60 2 July 19, 2019 1:00am March 30, 2022 9:41pm Take 7.5 - 15 mg daily as needed. naproxen 500 mg oral tablet (5 sources) Nonsteroidal Anti-inflammatory Drug Start: 03-30-2022 End: 04-16-2022 take 1 tablet by mouth twice daily as needed for pain Naproxen (Naprosyn) 500 mg tablet Discontinued 500 mg PO TWICE A DAY as needed for pain 20 0 March 30, 2022 12:00am April 16, 2022 9:20am predniSONE 20 mg oral tablet (5 sources) Start: 03-30-2022 End: 04-16-2022 take 2 tablets by mouth once daily Prednisone 20 mg tablet Discontinued 40 mg PO DAILY 8 0 March 30, 2022 12:00am April 16, 2022 9:20am Start: 03-30-2022 End: 04-16-2022 take 40 mg by mouth once daily Prednisone Discontinued 40 MG PO DAILY 8 March 29, 2022 11:00pm April 16, 2022 8:20am sertraline 50 mg oral tablet (7 sources) Serotonin Reuptake Inhibitor Start: 10-02-2022 End: 10-16-2022 take 1 tablet by mouth once daily Sertraline 50 mg tablet Discontinued 50 mg PO DAILY 30 October 02, 2022 10:06am October 16, 2022 11:51am Start: 09-09-2022 End: 10-02-2022 Sertraline 50 mg tablet Disc ontinued 50 mg PO DAILY 30 September 09, 2022 1:00am October 02, 2022 10:06am Take 1/2 tablet daily x 1 week then increase to 1 tablet. Problems Problem Classification Problem Date Documented Da te Episodic/Chronic Abdominal pain (4 sources) Right upper quadrant pain; Translations: [Right upper quadrant pain] 10-07-2023 Episodic Administrative/social admission (1 source) Patient encounter status; Translations: [Encounter for pre-employment examination] 10-29-2024 Episodic Anxiety disorders (7 sources) Mixed anxiety and depressive disorder; Translations: [Anxiety disorder, unspecified] 09-09-2022 Chronic Essential hypertension (10 sources) Hypertensive disorder; Translations: [Essential (primary) hypertension] 03-30-2019 Chronic Nonspecific chest pain (5 sources) Chest pain; Translations: [Chest pain, unspecified] 11-03-2022 Episodic Other liver diseases (1 source) Lesion of liver; Translations: [Liver disease, unspecified] 12-17-2023 Chronic Other male genital disorders (2 sources) Testicular mass; Translations: [Other specified disorders of the male genital organs] Episodic Other male genital disorders (1 source) Cyst of testis; Translations: [Benign cyst of testis] Episodic Other screening for suspected conditions (not mental disorders or infectious disease) (2 sources) Imaging result abnormal; Translations: [Abnormal findings on diagnostic imaging of other specified body structures] 12-17-2023 Chronic Residual codes; unclassified (1 source) Procedure not done; Translations: [Procedure and treatment not carried out, unspecified reason] Episodic Spondylosis; intervertebral disc disorders; other back problems (17 sources) Sciatica; Translations: [Sciatica, unspecified side] 04-07-2022 Episodic Sprains and strains (1 source) Injury of right wrist; Translations: [Strain of unspecified muscle, fascia and tendon at wrist and hand level, right hand, initial encounter] 03-10-2025 Episodic Results Test Name Value Interpretation Reference Range Facility Office Visit Reporton 2024 Office Visit Report [facility] [address] [place] [address] OFFICE VISIT Date of Service: 10/28/24 MR#: [id number] Acct: [id number] Patient: ANSHUL HOLLOWAY Rep #: [id number] : 1985 Provider: FAMILIA Robertson Age/Sex: 39/M Location: [facility] Status: Signed Intake Vital Signs 09/01/23 22:12 Height 6 ft 1 in Intake Visit Reasons: 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 Chief Complaint: 4 week follow up Allergies No Known Allergies Allergy (Verified 09/01/23 22:12) Office Procedures [facility] Billing Sheet Testing Breath Alcohol Test Pre-Employment: Yes Pre-Employment Drug Screen: Yes Pre-Employment PE: Yes 11/11/24 0840 Date Job Hernandez Signature: Date (if applicable) CC: Normal [facility] Urgent Care Visit Reporton 0 10-29-2024 Urgent Care Visit Report [facility] [address], [address] [place] [address] OFFICE VISIT Date of Service: 10/28/24 MR#: [id number] Acct: [id number] Name: ANSHUL HOLLOWAY Rep #: [id number] : 1985 Provider: FAMILIA Robertson Age/Sex: 39/M Location: [facility] Status: Signed Intake Vital Signs 09/01/23 22:12 Height 6 ft 1 in Intake Visit Reasons: PE 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 Chief Complaint: 4 week follow up Allergies No Known Allergies Allergy (Verified 09/01/23 22:12) PFSH Medical History Anxiety and depression Back pain Frequent headaches Family History Father Cancer Mother Cancer Other Arthritis Diabetes Heart disease Hyperlipemia Hypertension Social History Smoking Status: Never smoker alcohol intake: current alcohol intake frequency: holidays/special occasions only substance use type: does not use what type of physical activity do you participate in: running frequency: 1-2 times per week HPI HPI Chief Complaint: 4 week follow up Details: ANSHUL HOLLOWAY, is a 39 M who presents to the office today for preemployment physical. Please see corresponding scanned documents with today's date. Office Procedures Physical Exam Coding PE Coding Pre-employment PE: Yes Coding Level of Care Code No Charge Diagnoses Encounter for pre-employment health screening examination Z02.1 Assessment and Plan Assessment and Plan (1) Encounter for pre-employment health screening examination: Status: Acute 10/29/24 1242 Date Job Hernandez Signature: Date (if applicable) CC: Normal [facility] No Panel Informationon 10-20 Radiology Result ACTIONABLE Abnormal Rachelle espinoza [facility] Absolute lymphocyte countOrd ered By: Jose Carlos Morales on 09-01-2023 Lymphocytes Auto (Unsp spec) [#/Vol] 3.79 10*3/uL 0.83-4.51 [facility] Basophil percentageOrdered B y: Jose Carlos Morales on 09-01-2023 Basophils/100 WBC (Bld) 0.4 % 0-1 [facility] Chloride [Moles/Vol] 105 mmol/L 98-107 [facility] Eosinophils/100 WBC (Bld) 1.4 % 0-5 [facility] Glucose [Mass/Vol] 98 mg/dL 74-106 [facility] Neutrophils (Bld) [#/Vol] 2.5 10*3/uL 2.0-7.7 [facility] Neutrophils/100 WBC (Bld) 35.8 % 47-70 [facility] Potassium [Moles/Vol] 3.2 mmol/L 3.5-5.[address] [facility] Sodium [Moles/Vol] 141 mmol/L 136-145 [facility] WBC (Bld) [#/Vol] 7.1 10*3/uL 4.4-11.0 [facility] Blood erythrocytes count (nu mber/volume)Ordered By: Jose Carlos Morales on 09-01-2023 RBC (Bld) [#/Vol] 4.92 10*6/uL 4.6-6.2 [facility] Blood hemoglobin measurement (mass/volume)Ordered By: Jose Carlos Morales on 09-01-2023 Hemoglobin (Bld) [Mass/Vol] 13.6 g/dL 13.0-16.5 [facility] Blood lymphocytes/100 leukoc ytesOrdered By: Jose Carlos Morales on 09-01-2023 Lymphocytes/100 WBC (Bld) 53.5 % 19-41 [facility] Blood monocytes/100 leukocyt esOrdered By: Jose Carlos Morales on 09-01-2023 Monocytes/100 WBC (Bld) 8.8 % 0-10 [facility] Blood platelet mean volumeOr dered By: Jose Carlos Morales on 09-01-2023 Platelet mean volume (Bld) [Entitic vol] 9.7 fL 6.2-12.0 [facility] Determination of erythrocyte mean corpuscular volume (MCV)Ordered By: Jose Carlos Morales on 09-01-2023 MCV (RBC) [Entitic vol] 84.6 fL 80-94 [facility] Hematocrit Auto (Bld) [Volum e fraction]Ordered By: Jose Carlos Morales on 09-01-2023 Hematocrit (Bld) [Volume fraction] 41.6 % 40-54 [facility] Laboratory - Chemistry and C hemistry - challengeOrdered By: Jose Carlos Morales on 09-01-2023 CO2 [Moles/Vol] 31.0 mmol/L 21.0-32.0 [facility] Urea nitrogen/Creatinine [Mass ratio] 10.4 mg/mg 10-20 [facility] Laboratory - Hematology and Cell countsOrdered By: Jose Carlos Morales on 09-01-2023 Erythrocyte distribution width (RBC) [Entitic vol] 43.4 fL 35.1-43.9 [facility] Erythrocyte distribution width (RBC) [Ratio] 14.0 % 11.6-14.6 [facility] Immature granulocytes/100 WBC (Bld) 0.100 % 0.0-0.9 [facility] Comment on above: IG% - Immature Granu locytes (promyelocytes, myelocytes and metamyelocytes) > 1% indicates that a LEFT SHIFT is Present. MCH (RBC) [Entitic mass] 27.6 pg 27.0-32.0 [facility] Nucleated RBC/100 WBC (Bld) [Ratio] 0 % 0-5 [facility] MCHC Auto (RBC) [Mass/Vol]Or dered By: Jose Carlos Morales on 09-01-2023 MCHC (RBC) [Mass/Vol] 32.7 g/dL 32-[address] [facility] No Panel InformationOrdered By: Jose Carlos Morales on 09-01-2023 Estimated Creatinine Clearance Calc 99.39 ml/min [facility] Estimated GFR (MDRD) Amer 92 mL/min >60 [facility] Comment on above: GFR Calc Estimated GFR (MDRD) Non-Af Amer 76 mL/min >60 [facility] Comment on above: Non- GFR Calc Troponin I High Sensitivity 4 pg/mL 3.0-78.0 [facility] Comment on above: Please Note: New Fouzia t Units and Gender Specific Reference Ranges. For more information see Policy Stat Procedure [place] High Sensitivity Troponin (TNIH) and attachments. Platelets bldOrdered By: Merritt Morales on 09-01-2023 Platelets (Bld) [#/Vol] 320 10*3/uL 150-450 [facility] Serum or plasma calcium mac urement (mass/volume)Ordered By: Jose Carlos Morales on 09-01-2023 Calcium [Mass/Vol] 9.4 mg/dL 8.5-10.1 [facility] Serum or plasma creatinine m easurement (mass/volume)Ordered By: Jose Carlos Morales on 09-01-2023 Creatinine [Mass/Vol] 1.15 mg/dL 0.70-1.[address] [facility] Comment on above: The validity of the calculated GFR & GFRAA in patients over 70 years has not been determined. Clinical correlation is essential. Serum or plasma urea nitroge n measurement (mass/volume)Ordered By: Jose Carlos Morales on 09-01-2023 Urea nitrogen [Mass/Vol] 12 mg/dL 7-18 [facility] Thin prep Papanicolaou smear with manual screeningOrdered By: Jose Carlos Morales on 09-01-2023 Thin prep Papanicolaou smear with manual screening 5 5-15 [facility] No Panel Informationon 11-14 [facility] Absolute lymphocyte countOrd ered By: Dr. Hebert on 11-03-2022 Lymphocytes Auto (Unsp spec) [#/Vol] 5.42 10*3/uL 0.83-4.51 [facility] Basophil percentageOrdered B y: Dr. Hebert on 11-03-2022 Basophils/100 WBC (Bld) 0.4 % 0-1 [facility] Chloride [Moles/Vol] 103 mmol/L 98-107 [facility] Eosinophils/100 WBC (Bld) 1.8 % 0-5 [facility] Glucose [Mass/Vol] 105 mg/dL 74-106 [facility] Comment on above: Fasting Glucose resu lt from 100 to 125 mg/dL suggests IMPAIRED HOMEOSTASIS per A.D.A. criteria. Neutrophils (Bld) [#/Vol] 2.1 10*3/uL 2.0-7.7 [facility] Neutrophils/100 WBC (Bld) 25.0 % 47-70 [facility] Potassium [Moles/Vol] 3.4 mmol/L 3.5-5.[address] [facility] Sodium [Moles/Vol] 140 mmol/L 136-145 [facility] WBC (Bld) [#/Vol] 8.4 10*3/uL 4.4-11.0 [facility] Blood erythrocytes count (nu mber/volume)Ordered By: Dr. Hebert on 11-03-2022 RBC (Bld) [#/Vol] 5.17 10*6/uL 4.6-6.2 [facility] Blood hemoglobin measurement (mass/volume)Ordered By: Dr. Hebert on 11-03-2022 Hemoglobin (Bld) [Mass/Vol] 14.4 g/dL 13.0-16.5 [facility] Blood lymphocytes/100 leukoc ytesOrdered By: Dr. Hebert on 11-03-2022 Lymphocytes/100 WBC (Bld) 64.4 % 19-41 [facility] Blood monocytes/100 leukocyt esOrdered By: Dr. Hebert on 11-03-2022 Monocytes/100 WBC (Bld) 8.3 % 0-10 [facility] Blood platelet mean volumeOr dered By: Dr. Hebert on 11-03-2022 Platelet mean volume (Bld) [Entitic vol] 9.3 fL 6.2-12.0 [facility] Determination of erythrocyte mean corpuscular volume (MCV)Ordered By: Dr. Hebert on 11-03-2022 MCV (RBC) [Entitic vol] 83.9 fL 80-94 [facility] Hematocrit Auto (Bld) [Volum e fraction]Ordered By: Dr. Hebert on 11-03-2022 Hematocrit (Bld) [Volume fraction] 43.4 % 40-54 [facility] Laboratory - Chemistry and C hemistry - challengeOrdered By: Dr. Hebert on 11-03-2022 CO2 [Moles/Vol] 31.0 mmol/L 21.0-32.0 [facility] Urea nitrogen/Creatinine [Mass ratio] 10.6 mg/mg 10-20 [facility] Laboratory - Hematology and Cell countsOrdered By: Dr. Hebert on 11-03-2022 Erythrocyte distribution width (RBC) [Entitic vol] 42.3 fL 35.1-43.9 [facility] Erythrocyte distribution width (RBC) [Ratio] 13.7 % 11.6-14.6 [facility] Immature granulocytes/100 WBC (Bld) 0.100 % 0.0-0.9 [facility] Comment on above: IG% - Immature Granu locytes (promyelocytes, myelocytes and metamyelocytes) > 1% indicates that a LEFT SHIFT is Present. MCH (RBC) [Entitic mass] 27.9 pg 27.0-32.0 [facility] Nucleated RBC/100 WBC (Bld) [Ratio] 0 % 0-5 [facility] MCHC Auto (RBC) [Mass/Vol]Or dered By: Dr. Hebert on 11-03-2022 MCHC (RBC) [Mass/Vol] 33.2 g/dL 32-[address] [facility] No Panel InformationOrdered By: Dr. Hebert on 11-03-2022 Troponin I High Sensitivity 4 pg/mL 3.0-78.0 [facility] Comment on above: Please Note: New Fouzia t Units and Gender Specific Reference Ranges. For more information see Policy Stat Procedure [place] High Sensitivity Troponin (TNIH) and attachments. Estimated Creatinine Clearance Calc 110.97 ml/min [facility] Estimated GFR (MDRD) Amer 104 mL/min >60 [facility] Comment on above: GFR Calc Estimated GFR (MDRD) Non-Af Amer 86 mL/min >60 [facility] Comment on above: Non- GFR Calc Platelets bldOrdered By: Dr. Hebert on 11-03-2022 Platelets (Bld) [#/Vol] 301 10*3/uL 150-450 [facility] Serum or plasma calcium mac urement (mass/volume)Ordered By: Dr. Hebert on 11-03-2022 Calcium [Mass/Vol] 9.4 mg/dL 8.5-10.1 [facility] Serum or plasma creatinine m easurement (mass/volume)Ordered By: Dr. Hebert on 11-03-2022 Creatinine [Mass/Vol] 1.04 mg/dL 0.70-1.[address] [facility] Comment on above: The validity of the calculated GFR & GFRAA in patients over 70 years has not been determined. Clinical correlation is essential. Serum or plasma urea nitroge n measurement (mass/volume)Ordered By: Dr. Hebert on 11-03-2022 Urea nitrogen [Mass/Vol] 11 mg/dL 7-18 [facility] Thin prep Papanicolaou smear with manual screeningOrdered By: Dr. Hebert on 11-03-2022 Thin prep Papanicolaou smear with manual screening 6 5-15 [facility] Absolute lymphocyte countOrd ered By: Dr. Garces on 09-09-2022 Lymphocytes Auto (Unsp spec) [#/Vol] 2.16 10*3/uL 0.83-4.51 [facility] Basophil percentageOrdered B y: Dr. Garces on 09-09-2022 Basophils/100 WBC (Bld) 0.5 % 0-1 [facility] Bilirubin [Mass/Vol] 0.30 mg/dL 0.20-1.00 [facility] Comment on above: For patients on eltr ombopag therapy, use of Dimension [place] TBIL is not recommended. Chloride [Moles/Vol] 106 mmol/L 98-107 [facility] Eosinophils/100 WBC (Bld) 1.3 % 0-5 [facility] Glucose [Mass/Vol] 96 mg/dL 74-106 [facility] Neutrophils (Bld) [#/Vol] 1.4 10*3/uL 2.0-7.7 [facility] Neutrophils/100 WBC (Bld) 36.6 % 47-70 [facility] Potassium [Moles/Vol] 4.1 mmol/L 3.5-5.[address] [facility] Protein [Mass/Vol] 7.8 g/dL 6.4-8.2 [facility] Sodium [Moles/Vol] 139 mmol/L 136-145 [facility] WBC (Bld) [#/Vol] 3.9 10*3/uL 4.4-11.0 [facility] Blood erythrocytes count (nu mber/volume)Ordered By: Dr. Garces on 09-09-2022 RBC (Bld) [#/Vol] 4.93 10*6/uL 4.6-6.2 [facility] Blood hemoglobin measurement (mass/volume)Ordered By: Dr. Garces on 09-09-2022 Hemoglobin (Bld) [Mass/Vol] 13.5 g/dL 13.0-16.5 [facility] Blood lymphocytes/100 leukoc ytesOrdered By: Dr. Garces on 09-09-2022 Lymphocytes/100 WBC (Bld) 55.2 % 19-41 [facility] Blood monocytes/100 leukocyt esOrdered By: Dr. Garces on 09-09-2022 Monocytes/100 WBC (Bld) 6.4 % 0-10 [facility] Blood platelet mean volumeOr dered By: Dr. Garces on 09-09-2022 Platelet mean volume (Bld) [Entitic vol] 9.6 fL 6.2-12.0 [facility] Determination of erythrocyte mean corpuscular volume (MCV)Ordered By: Dr. Garces on 09-09-2022 MCV (RBC) [Entitic vol] 84.4 fL 80-94 [facility] Hematocrit Auto (Bld) [Volum e fraction]Ordered By: Dr. Garces on 09-09-2022 Hematocrit (Bld) [Volume fraction] 41.6 % 40-54 [facility] Laboratory - Chemistry and C hemistry - challengeOrdered By: Dr. Garces on 09-09-2022 ALP [Catalytic activity/Vol] 50 U/L 45-117 [facility] ALT [Catalytic activity/Vol] 24 U/L 16-61 [facility] CO2 [Moles/Vol] 26.0 mmol/L 21.0-32.0 [facility] Cobalamin (Vitamin B12) [Mass/Vol] 538 pg/mL 211-911 [facility] Free T4 [Mass/Vol] 0.95 ng/dL 0.76-1.46 [facility] Globulin (S) [Mass/Vol] 3.8 g/dL 2.2-4.2 [facility] Urea nitrogen/Creatinine [Mass ratio] 8.7 mg/mg 10-20 [facility] Laboratory - Hematology and Cell countsOrdered By: Dr. Garces on 09-09-2022 Erythrocyte distribution width (RBC) [Entitic vol] 43.5 fL 35.1-43.9 [facility] Erythrocyte distribution width (RBC) [Ratio] 14.1 % 11.6-14.6 [facility] Immature granulocytes/100 WBC (Bld) 0.000 % 0.0-0.9 [facility] Comment on above: IG% - Immature Granu locytes (promyelocytes, myelocytes and metamyelocytes) > 1% indicates that a LEFT SHIFT is Present. MCH (RBC) [Entitic mass] 27.4 pg 27.0-32.0 [facility] Nucleated RBC/100 WBC (Bld) [Ratio] 0 % 0-5 [facility] MCHC Auto (RBC) [Mass/Vol]Or dered By: Dr. Garces on 09-09-2022 MCHC (RBC) [Mass/Vol] 32.5 g/dL 32-[address] [facility] No Panel InformationOrdered By: Dr. Garces on 09-09-2022 Estimated GFR (MDRD) Amer 105 mL/min >60 [facility] Comment on above: GFR Calc Estimated GFR (MDRD) Non-Af Amer 87 mL/min >60 [facility] Comment on above: Non- GFR Calc Thyroid Stimulating Hormone (TSH) 1.77 uIU/mL 0.358-3.74 [facility] Platelets bldOrdered By: Dr. Garces on 09-09-2022 Platelets (Bld) [#/Vol] 311 10*3/uL 150-450 [facility] Serum or plasma albumin mac urement (mass/volume)Ordered By: Dr. Garces on 09-09-2022 Albumin [Mass/Vol] 4.0 g/dL 3.2-5.0 [facility] Serum or plasma albumin/glob ulin mass ratioOrdered By: Dr. Garces on 09-09-2022 Albumin/Globulin [Mass ratio] 1.1 {ratio} 0.9-2.4 [facility] Serum or plasma calcium mac urement (mass/volume)Ordered By: Dr. Garces on 09-09-2022 Calcium [Mass/Vol] 9.2 mg/dL 8.5-10.1 [facility] Serum or plasma creatinine m easurement (mass/volume)Ordered By: Dr. Garces on 09-09-2022 Creatinine [Mass/Vol] 1.03 mg/dL 0.70-1.[address] [facility] Comment on above: The validity of the calculated GFR & GFRAA in patients over 70 years has not been determined. Clinical correlation is essential. Serum or plasma urea nitroge n measurement (mass/volume)Ordered By: Dr. Garces on 09-09-2022 Urea nitrogen [Mass/Vol] 9 mg/dL 7-18 [facility] Thin prep Papanicolaou smear with manual screeningOrdered By: Dr. Garces on 09-09-2022 Thin prep Papanicolaou smear with manual screening 13 U/L 15-37 [facility] Thin prep Papanicolaou smear with manual screening 7 5-15 [facility] Vital Signs Date Time Vital Sign Value Performing Clinician Facility 03-10-2025 11:01-0400 Body height 185.[address] Arnold Garces MD Work Phone: [facility] 03-10-2025 11:01-0400 Body mass index (BMI) [Ratio] 23.7 kg/m2 Dr. Arnold Garces MD Work Phone: [facility] 03-10-2025 11:01-0400 Body temperature 97.8 [degF] Dr. Arnold Garces MD Work Phone: [facility] 03-10-2025 11:01-0400 Body weight 81.[address] Arnold Garces MD Work Phone: [facility] 03-10-2025 11:01-0400 Diastolic blood pressure 70 mm[Hg] Dr. Arnold Garces MD Work Phone: [facility] 03-10-2025 11:01-0400 Heart rate 65 /min Dr. Arnold Garces MD Work Phone: [facility] 03-10-2025 11:01-0400 SaO2% (BldA) [Mass fraction] 98 % Dr. Arnold Garces MD Work Phone: [facility] 03-10-2025 11:01-0400 Systolic blood pressure 112 mm[Hg] Dr. Arnold Garces MD Work Phone: [facility] 10-07-2023 09:02-0500 Body weight 90.27 kg Sheri Tomlin APRN.BOX LINER Work Phone: [facility] 10-07-2023 09:02-0500 Diastolic blood pressure 90 mm[Hg] Sheri Tomlin APRN.BOX LINER Work Phone: [facility] 10-07-2023 09:02-0500 Heart rate 100 /min Sheri Tomlin APRN.BOX LINER Work Phone: [facility] 10-07-2023 09:02-0500 Respiratory rate 14 /min Sheri Tomlin APRN.BOX LIN[employer] Work Phone: [facility] 10-07-2023 09:02-0500 Systolic blood pressure 130 mm[Hg] Sheri Tomlin APRN.BOX LINER Work Phone: [facility] 09-02-2023 01:28-0500 Diastolic blood pressure 78 mm[Hg] [facility] 09-02-2023 01:28-0500 Systolic blood pressure 125 mm[Hg] [facility] 09-02-2023 01:00-0500 Heart rate 65 /min [facility] 09-02-2023 01:00-0500 Respiratory rate 14 /min [facility] 09-02-2023 01:00-0500 SaO2% (BldA) [Mass fraction] 96 % [facility] 09-01-2023 22:12-0500 Body height 185.42 cm [facility] 09-01-2023 22:12-0500 Body mass index (BMI) [Ratio] 26.4 kg/m2 [facility] 09-01-2023 22:12-0500 Body temperature 97 [degF] [facility] 09-01-2023 22:12-0500 Body weight 91.03 kg [facility] 11-08-2022 12:01-0400 Body temperature 97.11 [degF] Stefany Heaton PRIMARY CARE PROVIDER.BOX LIN[employer] Work Phone: [facility] 11-08-2022 12:01-0400 Body weight 87.73 kg Stefany Heaton PRIMARY CARE PROVIDER.[employer] Work Phone: [facility] 11-08-2022 12:01-0400 Diastolic blood pressure 104 mm[Hg] Stefany Heaton PRIMARY CARE PROVIDER.BOX LINER Work Phone: [facility] 11-08-2022 12:01-0400 Heart rate 114 /min Stefany Heaton PRIMARY CARE PROVIDER.[employer] Work Phone: [facility] 11-08-2022 12:01-0400 Respiratory rate 18 /min Stefany Heaton PRIMARY CARE PROVIDER.[employer] LINER Work Phone: [facility] 11-08-2022 12:01-0400 SaO2% (BldA) [Mass fraction] 99 % Stefany Heaton PRIMARY CARE PROVIDER.BOX LINER Work Phone: [facility] 11-08-2022 12:01-0400 Systolic blood pressure 172 mm[Hg] Stefany Heaton PRIMARY CARE PROVIDER.BOX LINER Work Phone: [facility] 11-03-2022 04:54-0400 Diastolic blood pressure 82 mm[Hg] Dr. Arnold Garces Work Phone: [facility] 11-03-2022 04:54-0400 Heart rate 60 /min Dr. Arnold Garces Work Phone: [facility] 11-03-2022 04:54-0400 Respiratory rate 14 /min Dr. Arnold Garces Work Phone: [facility] 11-03-2022 04:54-0400 SaO2% (BldA) [Mass fraction] 99 % Dr. Arnold Garces Work Phone: [facility] 11-03-2022 04:54-0400 Systolic blood pressure 119 mm[Hg] Dr. Arnold Garces Work Phone: [facility] 11-03-2022 00:57-0400 Body height 185.[address] Arnold Garces Work Phone: [facility] 11-03-2022 00:57-0400 Body mass index (BMI) [Ratio] 25.4 kg/m2 Dr. Arnold Garces Work Phone: [facility] 11-03-2022 00:57-0400 Body temperature 96.1 [degF] Dr. Arnold Garces Work Phone: [facility] 11-03-2022 00:57-0400 Body weight 87.[address] Arnold Garces Work Phone: [facility] 10-16-2022 10:53-0500 Body mass index (BMI) [Ratio] 25.3 kg/m2 Dr. Arnold Garces Work Phone: [facility] 10-16-2022 10:53-0500 Body temperature 97.9 [degF] Dr. Arnold Garces Work Phone: [facility] 10-16-2022 10:53-0500 Body weight 87.[address] Arnold Garces Work Phone: [facility] 10-16-2022 10:53-0500 Diastolic blood pressure 88 mm[Hg] Dr. Arnold Garces Work Phone: [facility] 10-16-2022 10:53-0500 Heart rate 73 /min Dr. Arnold Garces Work Phone: [facility] 10-16-2022 10:53-0500 Respiratory rate 14 /min Dr. Arnold Garces Work Phone: [facility] 10-16-2022 10:53-0500 SaO2% (BldA) [Mass fraction] 96 % Dr. Arnold Garces Work Phone: [facility] 10-16-2022 10:53-0500 Systolic blood pressure 140 mm[Hg] Dr. Arnold Garces Work Phone: [facility] 09-09-2022 14:13-0500 Body height 185.[address] Arnold Garces Work Phone: [facility] 09-09-2022 14:13-0500 Body mass index (BMI) [Ratio] 25.3 kg/m2 Dr. Arnold Garces Work Phone: [facility] 09-09-2022 14:13-0500 Body temperature 97.8 [degF] Dr. Arnold Garces Work Phone: [facility] 09-09-2022 14:13-0500 Body weight 87.[address] Arnold Garces Work Phone: [facility] 09-09-2022 14:13-0500 Diastolic blood pressure 82 mm[Hg] Dr. Arnold Garces Work Phone: [facility] 09-09-2022 14:13-0500 Heart rate 80 /min Dr. Arnold Garces Work Phone: [facility] 09-09-2022 14:13-0500 Respiratory rate 14 /min Dr. Arnold Garces Work Phone: [facility] 09-09-2022 14:13-0500 SaO2% (BldA) [Mass fraction] 98 % Dr. Arnold Garces Work Phone: [facility] 09-09-2022 14:13-0500 Systolic blood pressure 140 mm[Hg] Dr. Arnold Garces Work Phone: [facility] 03-30-2022 21:56-0400 Diastolic blood pressure 94 mm[Hg] [facility] Work Phone: 03-30-2022 21:56-0400 Systolic blood pressure 135 mm[Hg] [facility] Work Phone: 03-30-2022 20:32-0400 Body height 185.42 cm [facility] Work Phone: 03-30-2022 20:32-0400 Body mass index (BMI) [Ratio] 24.9 kg/m2 [facility] Work Phone: 03-30-2022 20:32-0400 Body temperature 96.8 [degF] [facility] Work Phone: 03-30-2022 20:32-0400 Body weight 85.72 kg [facility] Work Phone: 03-30-2022 20:32-0400 Heart rate 87 /min [facility] Work Phone: 03-30-2022 20:32-0400 Respiratory rate 14 /min [facility] Work Phone: 03-30-2022 20:32-0400 SaO2% (BldA) [Mass fraction] 99 % [facility] Work Phone: Encounters Encounter Date Encounter Type Care Provider Facility Start: 03-10-2025 End: 03-10-[address] Arnold Garces MD Work Phone: [facility] Start: 03-10-2025 End: 03-10-2025 Patient encounter procedure Job Carpio [facility] Work Phone: Start: 01-03-2025 End: 02-03-2025 ambulatory Sheri Tomlin APRN.BOX LINER Work Phone: [facility] Start: 10-28-2024 End: 10-28-2024 ambulatory Job BARBOSA Facility:[facility] Start: 06-22-2024 End: 06-23-2024 Refill Sheri Tomlin APRN.BOX LINER Work Phone: [facility] [place] Comment on above: Refill Request Start: 03-28-2024 Refill Sheri alexandre PRIMARY CARE PROVIDER.[employer] Work Phone: [facility] Comment on above: Refill Request Start: 03-14-2024 Refill Sheri alexandre PRIMARY CARE PROVIDER.[employer] Work Phone: [facility] [place] Comment on above: Refill Request Start: 03-10-2024 E-mail encounter fro m caregiver Danelle Rosas JACOBS.[employer] Work Phone: [facility] Start: 03-10-2024 Patient encounter procedure Danelle Pillai APRN.BOX LIN[employer] Work Phone: [facility] Comment on above: Final Outreach Actio nable Finding Start: 12-17-2023 ambulatory Danelle Pillai PRIMARY CARE PROVIDER.[employer] Work Phone: Radiology Comment on above: Actionable Finding Start: 12-17-2023 E-mail encounter fro m caregiver Danelle Rosas JACOBS.[employer] Work Phone: [facility]iology Start: 12-17-2023 Telephone encounter Zayra Collins APRN.BOX LIN[employer] Work Phone: Radiology Comment on above: Radiology Review Start: 10-27-2023 ambulatory Sheri alexandre APRN.BOX LIN[employer] Work Phone: [facility] Comment on above: Ursodiol Start: 10-23-2023 Telephone encounter Sheri hdez PRIMARY CARE PROVIDER.[employer] Work Phone: [facility] Comment on above: Results Start: 10-21-2023 End: 10-21-2023 Subsequent hospital visit by physician [facility] Work Phone: Radiology Comment on above: RUQ pain [R10.11] Start: 10-14-2023 ambulatory Sheri Eliobl e PRIMARY CARE PROVIDER.[employer] LIN[employer] [facility] Comment on above: Results. Start: 10-08-2023 ambulatory Sheri Eliobl e PRIMARY CARE PROVIDER.BOX LIN[employer] Work Phone: [facility] Comment on above: Blood Work Start: 10-07-2023 End: 10-07-2023 Patient encounter procedure Sheri Tomlin PRIMARY CARE PROVIDER.[employer] Work Phone: [facility] Comment on above: RUQ pain (Primary Dx ); Primary hypertension Start: 09-29-2023 ambulatory Sheri Barron e PRIMARY CARE PROVIDER.[employer] Work Phone: [facility] Comment on above: Question Start: 09-01-2023 End: 09-02-2023 Emergency department patient visit [facility] Work Phone: Start: 11-14-2022 Telephone encounter Stefany perez PRIMARY CARE PROVIDER.BOX LINER Work Phone: [facility] Comment on above: Results Start: 11-14-2022 End: 11-14-2022 Subsequent hospital visit by physician [facility] Work Phone: Radiology Comment on above: Testicular lump [N50 .89] Start: 11-08-2022 End: 11-08-2022 Patient encounter procedure Stefany Heaton PRIMARY CARE PROVIDER.BOX LINER Work Phone: [facility] Comment on above: Testicular lump (Quiana Dx) Start: 11-03-2022 End: 11-03-2022 Emergency department patient visit Dr. Arnold Garces Work Phone: [facility]Emergency Department Start: 10-18-2022 End: 10-18-2022 Patient encounter procedure Geraldo Harry PRIMARY CARE PROVIDER.BOX LINER Work Phone: [facility] Comment on above: Procedure not kari d out (Primary Dx) Start: 10-16-2022 End: 10-16-[address] Arnold Garces Work Phone: [facility] Start: 09-09-2022 End: 09-09-[address] Arnold Garces Work Phone: [facility] Work Phone: Start: 09-09-2022 End: 09-09-[address] Arnold Garces Work Phone: [facility] Start: 03-30-2022 End: 03-30-2022 [facility] Date Procedure Procedure Detail Performing Clinician Start: 10-21-2023 End: 10-21-2023 Us abdominal real time w/image limited Sheri Tomlin APRN.BOX LINER Work Phone: Start: 09-09-2023 Adult depression screening assessment Sheri Tomlin APRN.CNP Work Phone: Start: 09-09-2023 Lipid 1996 panel - S vic or Plasma Sheri Tomlin APRN.BOX LIN[employer] Work Phone: Start: 09-01-2023 Plain chest X-ray Start: 11-14-2022 Dup-scan artl jake abdl/pel/scrot&/rpr orgn com Stefany Heaton PRIMARY CARE PROVIDER.[employer] LINER Work Phone: Start: 11-14-2022 Us scrotum & contents J marine Heaton APRN.BOX LINER Work Phone: Start: 11-03-2022 Plain chest X-ray Dr. Tomi Garces Work Phone: Plan of Treatment Date Care Activity Detail Author Start: 09-09-2033 Urine microalbumin profile DTaP,Tdap,Td Vaccine (2 - Td or Tdap) [facility] Start: 09-09-2028 Lipid panel Lipid Screening [facility] Start: 04-18-2025 Influenza vaccination Influenza Vaccine (Season Ended) [facility] Start: 03-10-2025 Plain x-ray of wrist Wrist min 3 Views [facility] Start: 03-10-2025 XR Wrist GE 3 Views [facility] Start: 10-07-2024 Annual PCP Team Chronic Disease Visit Annual PCP Team Chronic Disease Visit [facility] Start: 09-09-2024 Anxiety Screening Anxiety Screening [facility] Start: 09-09-2024 Covid-19 Vaccine ( season) Covid-19 Vaccine () [facility] Comment on above: Postponed from 04/18/2023 (Declined at t his time) Start: 09-09-2024 Depression Screening Depression Screening [facility] Start: 04-18-2024 Covid-19 Vaccine ( season) Covid-19 Vaccine ( season) [facility] Start: 04-18-[address] [facility] Start: 02-15-2024 Influenza vaccination Influenza Vaccine (#1) [facility] Comment on above: Postponed from 04/18/2023 (Declined at t his time) Start: 01-20-2024 End: 01-20-2024 Patient encounter procedure 01/20/2024 10:30 AM EDT Office Visit [facility] [address] [facility] [place] [address] Elinor Islas PA-C [address] [place] [address] Gallbladder disease [K82.9] [facility] Comment on above: Gallbladder disease [K82.9] Start: 10-09-2023 End: 01-08-2024 Lipase [Enzymatic activity/volume] in Serum or Plasma LIPASE BLD Lab Routine RUQ pain Expected: 10/09/2023, Expires: 01/08/2024 [facility] Work Phone: Comment on above: Expected: 10/09/2023, Expires: Start: 10-07-2023 End: 01-06-2024 Amylase [Enzymatic activity/volume] in Serum or Plasma [facility] Work Phone: Comment on above: Expected: 10/07/2023, Expires: Start: 10-07-2023 End: 01-06-2024 Comprehensive metabolic 2000 panel - Serum or Plasma [facility] Work Phone: Comment on above: Expected: 10/07/2023, Expires: Start: 10-07-2023 End: 01-06-2024 Lipase [Enzymatic activity/volume] in Serum or Plasma [facility] Work Phone: Comment on above: Expected: 10/07/2023, Expires: Start: 09-02-2023 [facility] Start: 08-18-2023 Behavioral Health Screening Behavioral Health Screening [facility] Start: 04-18-2023 Covid-19 Vaccine ( season) Covid-19 Vaccine () [facility] Start: 04-18-2023 Influenza vaccination Influenza Vaccine (#1) [facility] Start: 11-03-2022 [facility] Start: 08-18-2022 DEPRESSION ASSESSMENT DEPRESSION ASSESSMENT [facility] Start: 04-18-2022 Influenza vaccination INFLUENZA (#1) [facility] Start: 03-30-2022 Plain X-ray of tibia and fibula Tibia & Fibula 2 Views [facility] Work Phone: Start: 03-30-2022 XR Tibia and Fibula 2 Views [facility] Work Phone: Start: 07-18-2021 COVID-19 VACCINE (2 - Pfizer series) COVID-19 VACCINE (2 - Pfizer series) [facility] Start: 2021 Lipid 1996 panel - Serum or Plasma Lipid Screening [facility] Start: 2021 LIPID SCREEN LIPID SCREEN [facility] Start: 11-27-[address] [facility] Start: 2004 Anxiety Screening Anxiety Screening [facility] Start: 2004 BP Controlled (<130/80) BP Controlled (<130/80) [facility] Start: 2004 Depression Screening Depression Screening [facility] Start: 2004 HEPATITIS C SCREENING HEPATITIS C SCREENING [facility] Start: 2004 HIV SCREENING HIV SCREENING [facility] Start: 1986 HEPATITIS B (1 of 3 - 3-dose series) HEPATITIS B (1 of 3 - 3-dose series) [facility] Start: 1986 Hepatitis B Vaccine (1 of 3 - 3-dose series) Hepatitis B Vaccine (1 of 3 - 3-dose series) [facility] End: 01-15-2025 CT Liver W contrast IV CT LIVER W IVCON Radiology Routine Abnormal finding of diagnostic imaging Lesion of liver greater than 1 cm in diameter 1 Occurrences starting 12/17/2023 until 01/15/2025 [facility] Work Phone: Comment on above: 1 Occurrences starting 12/17/2023 until 01/15/2025 End: 12-08-2023 Dup-scan artl jake abdl/pel/scrot&/rpr orgn com US DOPPLER COMPLETE Radiology STAT Testicular lump 1 Occurrences starting 11/08/2022 until 12/08/2023 [facility] Work Phone: Comment on above: 1 Occurrences starting 11/08/2022 until 12/08/2023 Patient Education [facility] Work Phone: Patient referral [facility] Work Phone: End: 11-05-2024 US Abdomen RUQ US ABD RIGHT UPPER QUADRANT Radiology Routine RUQ pain 1 Occurrences starting 10/07/2023 until 11/05/2024 [facility] Work Phone: Comment on above: 1 Occurrences starting 10/07/2023 until 11/05/2024 End: 12-08-2023 Us scrotum & contents US SCROTUM AND CONTENTS Radiology STAT Testicular lump 1 Occurrences starting 11/08/2022 until 12/08/2023 [facility] Work Phone: Comment on above: 1 Occurrences starting 11/08/2022 until 12/08/2023 [facility] Immunizations Immunization Date Immunization Notes Care Provider Beau wilson 09-09-2023 tetanus toxoid, redu toay diphtheria toxoid, and acellular pertussis vaccine, adsorbed Sheri Tomlin APRN.BOX LINER Work Phone: [facility] Payers Date Payer Category Payer Self-pay [id number] 2022 [employer] BLUE CARD PPO OOS [id number] 2022 Unknown [employer] BLUE CARD PPO OOS [id number] 2022-Present [phone] [id number] [place] [address] PPO [id number] Private Health Insurance [id number] Unknown SELF PAY INSURANCE [id number] Unknown [id number] ANTHEM [id number] Unknown [id number] Unknown [id number] Unknown [id number] Social History Date Type Detail Facility Start: 03-30-2022 End: 09-01-2023 Tobacco smoking status NHIS Unknown if ever smoked [facility] Start: 1985 Sex Assigned At Male [facility] Start: 1985 Sex Assigned At Not on file [facility] Start: 11-08-2022 End: 09-01-2023 Tobacco smoking status NHIS Never smoked tobacco [facility] Start: 11-08-2022 Tobacco use and exposure Smokeless tobacco non-user [facility] Start: 11-08-2022 End: 09-09-[address] [facility] Work Phone: Start: 11-08-2022 End: 09-09-[address] [facility] Work Phone: Start: 09-09-2023 End: 11-11-2023 Alcohol intake Current drinker of alcohol (finding) [facility] Adult Depression Screening Assessment 0 [facility] Work Phone: Start: 09-09-2023 [facility] Start: 10-12-2023 Gender identity Identifies as male gender (finding) [facility] Start: 11-11-2023 Sexual orientation Heterosexual (fin ding) [facility] Mental Status Date Assessment Result Facility 09-01-2023 Cognitive function Voice/Name [facility] Work Phone: 11-03-2022 Cognitive function Awake;Alert;A ppropriate;Fol lows Commands [facility] Work Phone: Clinical Notes 10-18-2022 to 01-03-2025 Carly Westbrook - 01/03/2025 10:37 AM EDTTelephone Encounter - Saba Metzger LPN - 06/23/2024 11:05 AM ESTTelephone Encounter - Saba Metzger LPN - 06/23/2024 11:05 AM EST Note Date & Type Note Facility 01-03-2025 Note HNO ID: [id number] Author: ?, ?, ? Service: ? Author Type: ? Type: Progress Notes Filed: 02/03/2025 03:03 Note Text: Left vm to call back and get appointment scheduled. [facility] 01-03-2025 History of Present illness Narrative Left vm to call back and get appointment scheduled. documented in this encounter [facility] 01-03-2025 Note Patient Outreach (PE DSWS) ANSHUL HOLLOWAY ([id number]) 1985 M Date Time Provider Department 01/03/25 SHERI TOMLIN During your visit today, we recorded the following information about you: Carly Westbrook 02/03/2025 3:03 AM Signed Left vm to call back and get appointment scheduled. Allergies As of Date: 01/03/2025 (No Known Allergies) Date Reviewed: 11/11/2023 Reviewed by: Brynn Corbin LPN - Fully Assessed Prescriptions as of 02/03/2025 - cyclobenzaprine (FLEXERIL) 10 mg tablet Take 1 tablet by mouth three times a day as needed for muscle spasm. - amLODIPine (NORVASC) 5 mg tablet Take 1 tablet by mouth once daily. - OTC NUTRITIONAL SUPPLEMENT Take 2 Tablespoonsful by mouth three times a day at 6 am, 12 pm, and 9 pm. Gallbladder Complete Cleanser Problem List As Of Date: 01/03/2025 (None) Encounter Status:Closed by LEONA WISEMAN on 02/03/25 [facility] 06-23-2024 Telephone encounter Note Prescription Refill Information The patient has been identified by name and date of : Yes Caregiver verified no other encounters exist for this prescription request: Yes Caregiver confirmed with patient/requestor that no other refills are due, in the near future, with this provider at this time: Yes The last office visit in the department: 10/07/23 Does the patient have a future office visit with this provider/department: No Requested Prescriptions Pending Prescriptions Disp Refills cyclobenzaprine (FLEXERIL) 10 mg tablet 30 tablet 0 Sig: Take 1 tablet by mouth three times a day as needed for muscle spasm. Saba Metzger LPN June 23, 2024 11:[address] [facility] 06-23-2024 Miscellaneous Notes Prescription Refill Information The patient has been identified by name and date of : Yes Caregiver verified no other encounters exist for this prescription request: Yes Caregiver confirmed with patient/requestor that no other refills are due, in the near future, with this provider at this time: Yes The last office visit in the department: 10/07/23 Does the patient have a future office visit with this provider/department: No Requested Prescriptions Pending Prescriptions Disp Refills cyclobenzaprine (FLEXERIL) 10 mg tablet 30 tablet 0 Sig: Take 1 tablet by mouth three times a day as needed for muscle spasm. Saba Metzger LPN June 23, 2024 11:05 AM documented in this encounter [facility] 03-29-2024 Telephone encounter Note Prescription Refill Information The patient has been identified by name and date of : Yes Caregiver verified no other encounters exist for this prescription request: Yes Caregiver confirmed with patient/requestor that no other refills are due, in the near future, with this provider at this time: Yes The last office visit in the department: 10/07/23 Does the patient have a future office visit with this provider/department: No Requested Prescriptions Pending Prescriptions Disp Refills amLODIPine (NORVASC) 5 mg tablet 90 tablet 1 Sig: Take 1 tablet by mouth once daily. Sancho Tomlinson LPN March 29, 2024 1:[address] [facility] 03-29-2024 Miscellaneous Notes Prescription Refill Information The patient has been identified by name and date of : Yes Caregiver verified no other encounters exist for this prescription request: Yes Caregiver confirmed with patient/requestor that no other refills are due, in the near future, with this provider at this time: Yes The last office visit in the department: 10/07/23 Does the patient have a future office visit with this provider/department: No Requested Prescriptions Pending Prescriptions Disp Refills amLODIPine (NORVASC) 5 mg tablet 90 tablet 1 Sig: Take 1 tablet by mouth once daily. Sancho Tomlinson LPN March 29, 2024 1:28 PM documented in this encounter [facility] 03-15-2024 Telephone encounter Note Prescription Refill Information The patient has been identified by name and date of : Yes Caregiver verified no other encounters exist for this prescription request: Yes Caregiver confirmed with patient/requestor that no other refills are due, in the near future, with this provider at this time: Yes The last office visit in the department: 10/07/23 Does the patient have a future office visit with this provider/department: No Requested Prescriptions Pending Prescriptions Disp Refills cyclobenzaprine (FLEXERIL) 10 mg tablet 30 tablet 0 Sig: Take 1 tablet by mouth three times a day as needed for muscle spasm. Sancho Tomlinson LPN March 15, 2024 10:[address] [facility] 03-15-2024 Miscellaneous Notes Prescription Refill Information The patient has been identified by name and date of : Yes Caregiver verified no other encounters exist for this prescription request: Yes Caregiver confirmed with patient/requestor that no other refills are due, in the near future, with this provider at this time: Yes The last office visit in the department: 10/07/23 Does the patient have a future office visit with this provider/department: No Requested Prescriptions Pending Prescriptions Disp Refills cyclobenzaprine (FLEXERIL) 10 mg tablet 30 tablet 0 Sig: Take 1 tablet by mouth three times a day as needed for muscle spasm. Sancho Tomlinson LPN March 15, 2024 10:35 AM documented in this encounter [facility] 12-17-2023 Note Addended by: ZAYRA COLLINS on: 12/17/2023 12:28 PM Modules accepted: Orders [facility] 12-17-2023 Miscellaneous Notes Addended by: ZAYRA COLLINS on: 12/17/2023 12:28 PM Modules accepted: Orders documented in this encounter [facility] 10-28-2023 Miscellaneous Notes Pt called back and would like to try medication below 1st and if this does not work then general surgery for consult. Please send medication to [facility]. Please advise pt. Greta Leyva LPN 1st call attempt, left vm Contact patient to schedule please. See mychart message. Faby Blandon MA documented in this encounter [facility] 10-23-2023 Miscellaneous Notes Patient informed and verbalized understanding. Please place consult to general surgery and then route to schedulers. Thanks. Zuleyma Adame MA Please let patient know his US shows gallbladder sludge and some small gallstones which could be the source of your RUQ pain. There are also 3 spots on your liver that are likely hemangiomas and they recommend repeat US in 6 months. I am placing a consult for you to see general surgery for your gall bladder findings. documented in this encounter [facility] 10-21-2023 History of Present illness Narrative Radiology Service Progress Note PATIENT NAME: Anshul Holloway DATE OF SERVICE: October 21, 2023 TIME: 9:47 AM PATIENT IDENTITY VERIFICATION COMPLETED USING TWO (2) IDENTIFIERS: Name and Date of confirmed by patient verbally. FALL SCREENING: Has the patient had 2 falls in the last year or 1 fall with injury or currently using an Ambulatory Assistive Device (Walker, Cane, Wheelchair, Crutches, etc.)? No PATIENT GENDER DATA: Male PATIENT RELEVANT IMPLANT DATA REVIEWED: Not Applicable PATIENT PRESENTS WITH AN IMPLANTABLE OR ATTACHED LINE PRODUCER: No RADIOLOGY DEPARTMENT: Ultrasound PERIPHERAL IV DATA: Not applicable SIGNED BY: Lisy Bravo RDMS October 21, 2023 9:47 AM documented in this encounter [facility] 10-15-2023 Miscellaneous Notes US is scheduled 10/21/23. documented in this encounter [facility] 10-09-2023 Miscellaneous Notes Pt willing to come in next week and get blood work done. Please place orders. Faby Blandon Ma See pt message. Neither iron or Vit D labs were ordered. Sancho Tomlinson LPN documented in this encounter [facility] 10-07-2023 History of Present illness Narrative Chief Complaint Patient presents with: abdominal discomfort : RLQ X 2 weeks HPI Anshul Holloway is a 38 year old male who presents here today for Above Complaints.. RUQ discomfort for about two weeks. Not painful but feels like pressure, knot or poking. Worse with fatty foods. Has been intermittently constipated. Occasional bloating and gas. Had green formed stool this morning. No fever, no nausea, no diarrhea, no heartburn. Has tried taking OTC Ziggy enzymes which includes lipase and amylase. Has his gallbladder and appendix. Patient also was seen 3 weeks ago for elevated BP and started on amlodipine. Patient is tolerating well. Past medical history, appointments, medications, allergies reviewed. Previous Medical History PAST MEDICAL HISTORY Diagnosis Date Essential hypertension Previous Surgical History No past surgical history on file. Family History FAMILY HISTORY Problem Relation Age of Onset Thyroid Cancer Mother Prostate Cancer Father Patient Allergies ALLERGIES No Known Allergies Current Medications Current Outpatient Medications on File Prior to Visit Medication Sig cyclobenzaprine (FLEXERIL) 10 mg tablet Take 1 tablet by mouth three times a day as needed for muscle spasm. amLODIPine (NORVASC) 5 mg tablet Take 1 tablet by mouth once daily. No current facility-administered medications on file prior to visit. Social History Social History Tobacco Use Smoking status: Never Smokeless tobacco: Never Vaping Use Vaping Use: Never used Substance Use Topics Alcohol use: Yes Comment: occasionally Drug use: Not Currently Types: Marijuana Review of Symptoms REVIEW OF SYSTEMS See HPI EXAM: BP 130/90 Pulse 100 Resp 14 Wt 90.3 kg (199 lb) General Appearance: Well appearing, alert, in no acute distress, well-hydrated, well nourished.. Lungs: Lungs clear to auscultation. No wheezing, rhonchi, rales.. Heart: RRR without murmur, gallop, or rubs. No ectopy. Abdomen: Normal abdominal exam, Abdomen soft, non-tender. Bowel sounds normal. No masses, organomegaly. Health Maintenance List Influenza Vaccine(1) due on 02/15/2024 Covid-19 Vaccine(2 - 2022-24 season) due on 09/09/2024 Lipid Screening due on 09/09/2028 DTaP,Tdap,Td Vaccine(2 - Td or Tdap) due on 09/09/2033 Depression Assessment Completed Hepatitis C Screening Completed HIV Screening Completed HPV Vaccine Aged Out Hepatitis B Vaccine Discontinued ASSESSMENT/PLAN: 1. RUQ pain - ICD9: 789.01, ICD10: R10.11 (primary diagnosis) - Labs of CMP, Amylase, and Lipase - Work up with RUQ ultrasound - US ABD RIGHT UPPER QUADRANT - COMP METABOLIC PANEL - LIPASE BLD - AMYLASE BLD 2. Primary hypertension - ICD9: 401.9, ICD10: I10 - Controlled - Continue current medications - Recommend home blood pressure monitoring, to bring results to next visit - Encouraged sodium restriction, DASH or Mediterranean diet - Recommend regular aerobic exercise - Discussed need for and benefit of weight loss. There is no height on file. Sheri Tomlin APRN.BOX LINER I have personally seen and examined the patient and performed the medical-decision making components. I have reviewed the Advanced Practice Registered Nurse (PRIMARY CARE PROVIDER) student's documentation and verified the findings in the note as written. Any additions or changes are noted in bold/italics. Sheri Tomlin APRN.BOX LINER documented in this encounter [facility] 09-30-2023 Miscellaneous Notes Pt advised via Adform to call in and set up appt to evaluate. Faby Blandon Ma documented in this encounter [facility] 11-14-2022 Miscellaneous Notes Spoke with pt and [...] he has not had scheduled US from [facility] last week. Did he have it performed at another facility ? documented in this encounter [facility] 11-14-2022 History of Present illness Narrative [...] PERIPHERAL IV DATA: Not applicable SIGNED BY: Stefany Santillan RDMS RVT November 14, 2022 9:59 AM documented in this encounter [facility] 11-08-2022 History of Present illness Narrative This note was created using TidyClubriter. Subjective Anshul Holloway is a 37 year [...] history is provided by the patient. No deputy sheriff custody was used. Male Problem This is a [...] nursing note reviewed. Exam conducted with a ground operations crew member present. Constitutional: General: He is not in [...] Scheduled for 11/14/22. Luzma Armstrong TEACHING PROVIDER (Physician/PA/PRIMARY CARE PROVIDER) NOTE OF PERSONAL INVOLVEMENT IN CARE: I have personally seen and examined the patient and performed the medical decision-making components. I have reviewed the Advanced Practice Registered Nurse (PRIMARY CARE PROVIDER) Student's documentation and verified the findings in the note as written. Any additions or changes are noted in bold/italics. Signature: Stefany Heaton Date: 11/08/2022 Time: 2:12 PM documented in this encounter [facility] 10-18-2022 History of Present illness Narrative [...] with plan of care. Geraldo Mcdonald APRN.CNP documented in this encounter [facility] Evaluation note No assessment inform ation available [facility] Work Phone: Evaluation note Diagnosis Onset Date Anxiety and depression chron ic Hypertension chronic [facility] Work Phone: Evaluation note* Diagnosis Procedure not carried out- Primary Procedure not carried out for other reasons [facility] Diagnosis Onset Date Resolution Status Anxiety and depression chron ic Hypertension chronic Anxiety and depression chron ic Hypertension [facility] Work Phone: Evaluation note* Diagnosis Testicular lump- Primary Other specified disorder of male genital organs [facility] Diagnosis Testicular cyst- Primary Other specified disorder of male genital organs [facility] Diagnosis Testicular lump Other specified disorder of male genital organs [facility] Diagnosis RUQ pain- Primary Abdominal pain, right upper quadrant Primary hypertension Unspecified essential hypertension [facility]* Diagnosis RUQ pain- Primary Abdominal pain, right upper quadrant [facility] Diagnosis RUQ pain Abdominal pain, right upper quadrant [facility] Diagnosis RUQ pain- Primary Abdominal pain, right upper quadrant [facility] Diagnosis Abnormal finding of diagnostic imaging- Primary Other nonspecific (abnormal) findings on radiological and other examinations of body structure Lesion of liver greater than 1 cm in diameter [facility]* Diagnosis Abnormal finding on imaging- Primary Other nonspecific (abnormal) findings on radiological and other examinations of body structure [facility]* Diagnosis Neck pain Cervicalgia documented in this encounter [facility] note* Diagnosis Hypertension, essential Unspecified essential hypertension documented in this encounter [facility] for referral (narrative)* Diagnostic Procedure Only (Urgent) - Pending Review Specialty Diagnoses / Procedures Referred By Contac t Referred To Contact US IMAGING Diagnoses Testicular lump Procedures US DOPPLER COMPLETE DUP-SCAN ARTL JAKE ABDL/PEL/SCROT&/RPR ORGN COM Stefany Heaton APRN.BOX LINER [address] [place] [address] Us Imaging Referral ID Status Reason Start Date Expiration Date Visits Requested Visits Authorized [id number] Pending Review Auto-Generat ed Referral 11/08/2022 12/08/2023 1 1 * Diagnostic Procedure Only (Urgent) - Authorized Specialty Diagnoses / Procedures [facility] Referred To Contact US IMAGING Diagnoses Testicular lump Procedures US SCROTUM AND CONTENTS US SCROTUM & CONTENTS Stefany Heaton APRN.BOX LINER [address] [place] [address] Us Imaging Referral ID Status Reason Start Date Expiration Date Visits Requested Visits Authorized [id number] Authorized Auto-Generat ed Referral 11/08/2022 12/08/2023 1 1 [facility] for referral (narrative)* Diagnostic Procedure Only (Urgent) - Closed Specialty Diagnoses / Procedures [facility] Referred To Contact US IMAGING Diagnoses Testicular lump Procedures US SCROTUM AND CONTENTS US SCROTUM & CONTENTS Stefany Heaton APRN.BOX LINER [address] [place] [address] [place] [address] Referral ID Status Reason Start Date Expiration Date V isits Requested Visits Authorized [id number] Closed Auto-Generate d Referral 11/08/2022 12/08/2023 1 1 [facility] for referral (narrative)* Diagnostic Procedure Only (Routine) - Authorized Specialty Diagnoses / Procedures Referred By Contac t Referred To Contact US IMAGING Diagnoses RUQ pain Procedures US ABD RIGHT UPPER QUADRANT US ABDOMINAL REAL TIME W/IMAGE LIMITED Sheri Tomlin APRN.BOX LINER [address] [place] [address] [place] [address] Referral ID Status Reason Start Date Expiration Date Visits Requested Visits Authorized [id number] Authorized Auto-Generat ed Referral 10/07/2023 11/05/2024 1 1 [facility] for referral (narrative)* Diagnostic Procedure Only (Routine) - Closed Specialty Diagnoses / Procedures Referred By Contac t Referred To Contact US IMAGING Diagnoses RUQ pain Procedures US ABD RIGHT UPPER QUADRANT US ABDOMINAL REAL TIME W/IMAGE LIMITED Sehri Tomlin APRN.BOX LINER [address] [place] [phone] [place] [address] Referral ID Status Reason Start Date Expiration Date V isits Requested Visits Authorized [id number] Closed Auto-Generate d Referral 10/07/2023 11/05/2024 1 1 [facility] for referral (narrative)No reason for referral information [facility] Work Phone: Chief Complaint and Reason for Visit Chief Complaint ANKLE Chief Complaint CONCERNS Reason for Visit Anxiety and depressi on Hypertension Chief Complaint CONCERNS 4 wk fu chest tightness Reason for Visit Anxiety and depressi on Hypertension Anxiety and depression Hypertension Chief Complaint chest pain, hyperten myron Chief Complaint Admit Date XRAY RIGHT WRIST March 10, 2025 10:3 1am R WRIST INJURY/PRISCILLA BRUSH March 10, 2025 10:48am Family History Relationship Condition Age at Onset Recorded Date/T adi Not Specified Diabetes mellitus Unknown Arthritis Unknown Cardiac disease Unknown Hyperlipidemia Unknown Hypertension Unknown father Malignant neoplasm Unknown mother Malignant neoplasm Unknown Advance Directives Advance Directive Response Recorded Date/ Time Living Will No March 30 2 9:05pm Power of Admission Nurse No March 30, 2 022 9:05pm Advance Directive Response Recorded Date/ Time Living Will No March 30 2 8:05pm Power of Admission Nurse No March 30, 022 8:05pm Advance Directive Response Recorded Date/ Time Living Will No November 03, 2022 1:00am Power of Admission Nurse No November 03 1:00am Advance Directive Response Recorded Date/ Time Living Will No September 01 10:31pm Power of Admission Nurse No September 01, 2023 10:31pm Reason for Referral Specialty Diagnoses / Procedures Referred By Contac t Referred To Contact Urology Diagnoses Testicular cyst Procedures CONSULT TO UROLOGY OFFICE/OUTPATIENT [facility] 60-74 MINUTES Stefany Heaton, PRIMARY CARE PROVIDER.BOX LINER [address] [place] [address] Referral ID Status Reason Start Date Expiration Date Visits Requested Visits Authorized [id number] Authorized PCP Requested Referral 11/14/2022 11/14/2023 1 1 Specialty Diagnoses / Procedures Referred By Contac t Referred To Contact General Surgery Diagnoses RUQ pain Procedures CONSULT TO GENERAL SURGERY OFFICE/OUTPATIENT [facility] 60 MINUTES Sheri Tomlin PRIMARY CARE PROVIDER.BOX LINER [address] [place] [phone] Referral ID Status Reason Start Date Expiration Date Visits Requested Visits Authorized [id number] Authorized PCP Requested Referral 10/28/2023 10/27/2024 1 1 Specialty Diagnoses / Procedures Referred By Contac t Referred To Contact CT IMAGING Diagnoses Abnormal finding of diagnostic imaging Lesion of liver greater than [address] diameter Procedures CT LIVER W IVCON CT ABDOMEN W/CONTRAST Zayra Collins, PRIMARY CARE PROVIDER.BOX LINER [address] [place] [address] Ct Imaging [facility] Referral ID Status Reason Start Date Expiration Date Visits Requested Visits Authorized [id number] Pending Review Auto-Generat ed Referral 12/17/2023 01/15/2025 1 1 Summary Purpose Additional Source Comments Goals (unrecognized section and content) Goals may be documented in a n alternate sectionGoals may be documented in an alternate sectionGoals may be documented in an alternate sectionGoals may be documented in an alternate sectionGoals may be documented in an alternate section Care Teams (unrecognized sec tion and content) Team Status: Active Member Role Status Dates Dr. Arnold Garces MD Family Provider Active Dr. Arnold Garces MD Primary Care Provider Active Team Status: Inactive Member Role Status Dates Dr. Arnold Garces MD Primary Care P clover, Attending Provider, Referring Provider Active Team Status: Inactive Member Role Status Dates Dr. Arnold Garces MD Primary Care Provider Active Dr. Leslee Hebert MD Emergency Provider Active Team Status: Inactive Member Role Status Dates Dr. Arnold Garces MD Primary Care Provider Active Dr. Jose Carlos Morales DO Emergency Provider Active [employer] Supervisor Relationship Specialty Start Date End Date Sheri Tomlin, PRIMARY CARE PROVIDER.BOX LINER [address] [place] [phone] PCP - General Family Medicine 09/09/23 [employer] Supervisor Relationship Specialty Start Date End Date Sheri Tomlin, PRIMARY CARE PROVIDER.BOX LINER [address] [place] [address] [phone] PCP - General Family Medicine 09/09/23 [employer] Supervisor Relationship Specialty Start Date End Date Sheri Tomlin, PRIMARY CARE PROVIDER.BOX LINER [address] [place] [phone] PCP - General Family Medicine 09/09/23 [employer] Supervisor Relationship Specialty Start Date End Date Sheri Tomlin, PRIMARY CARE PROVIDER.BOX LINER [address] [place] [phone] PCP - General Family Medicine 09/09/23 [employer] Supervisor Relationship Specialty Start Date End Date Sheri Tomlin, PRIMARY CARE PROVIDER.BOX LINER [address] [place] [phone] PCP - General Family Medicine 09/09/23 [employer] Supervisor Relationship Specialty Start Date End Date Sheri Tomlin APRN.BOX LINER [address] [place] [address] PCP - General Family Medicine 09/09/23 [employer] Supervisor Relationship Specialty Start Date End Date Sheri Tomiln APRN.BOX LINER [address] [place] [phone] PCP - General Family Medicine 09/09/23 [employer] Supervisor Relationship Specialty Start Date End Date Sheri Tomlin PRIMARY CARE PROVIDER.BOX LINER [address] [place] [phone] PCP - General Family Medicine 09/09/23 [employer] Supervisor Relationship Specialty Start Date End Date Sheri Tomiln, PRIMARY CARE PROVIDER.BOX LINER [address] [place] [address] [id number] PCP - General Family Medicine 09/09/23 Team Status: Active Member Role/Relationship Status Dates Dr. Arnold Garces MD Primary Care Provider Active Team Status: Active Member Role/Relationship Status Dates Dr. Arnold Garces MD Primary Care Provider Active Start: March 10, 2025 FAMILIA Alas Attending Provider Active Sta rt: March 10, 2025 Team Status: Inactive Member Role/Relationship Status Dates Dr. Arnold Garces MD Primary Care Provider Active Start: March 10, 2025 End: March 10, 2025 Dr. Arnold Garces MD Referring Provider Active Start: March 10, 2025 End: March 10, 2025 Job BARBOSA PA Attending Provider Active Sta rt: March 10, 2025 End: March 10, 2025 Source Comments (unrecognize d section and content) In the event this informatio n is protected by the [facility] Confidentiality of Alcohol and Drug Abuse Patient Records regulations: The Federal rules restrict any use of the information to criminally investigate or prosecute any alcohol or drug abuse patient.[facility] the event this information is protected by the Federal Confidentiality of Alcohol and Drug Abuse Patient Records regulations: The Federal rules restrict any use of the information to criminally investigate or prosecute any alcohol or drug abuse patient.[facility] the event this information is protected by the Federal Confidentiality of Alcohol and Drug Abuse Patient Records regulations: The Federal rules restrict any use of the information to criminally investigate or prosecute any alcohol or drug abuse patient.[facility] the event this information is protected by the Federal Confidentiality of Alcohol and Drug Abuse Patient Records regulations: The Federal rules restrict any use of the information to criminally investigate or prosecute any alcohol or drug abuse patient.[facility] the event this information is protected by the Federal Confidentiality of Alcohol and Drug Abuse Patient Records regulations: The Federal rules restrict any use of the information to criminally investigate or prosecute any alcohol or drug abuse patient.[facility] the event this information is protected by the Federal Confidentiality of Alcohol and Drug Abuse Patient Records regulations: The Federal rules restrict any use of the information to criminally investigate or prosecute any alcohol or drug abuse patient.[facility] the event this information is protected by the Federal Confidentiality of Alcohol and Drug Abuse Patient Records regulations: The Federal rules restrict any use of the information to criminally investigate or prosecute any alcohol or drug abuse patient.[facility] Hospital[facility] the event this information is protected by the Federal Confidentiality of Alcohol and Drug Abuse Patient Records regulations: The Federal rules restrict any use of the information to criminally investigate or prosecute any alcohol or drug abuse patient.[facility] the event this information is protected by the Federal Confidentiality of Alcohol and Drug Abuse Patient Records regulations: The Federal rules restrict any use of the information to criminally investigate or prosecute any alcohol or drug abuse patient.[facility] the event this information is protected by the Federal Confidentiality of Alcohol and Drug Abuse Patient Records regulations: The Federal rules restrict any use of the information to criminally investigate or prosecute any alcohol or drug abuse patient.[facility] the event this information is protected by the Federal Confidentiality of Alcohol and Drug Abuse Patient Records regulations: The Federal rules restrict any use of the information to criminally investigate or prosecute any alcohol or drug abuse patient.[facility] Hospital[facility] the event this information is protected by the Federal Confidentiality of Alcohol and Drug Abuse Patient Records regulations: The Federal rules restrict any use of the information to criminally investigate or prosecute any alcohol or drug abuse patient.[facility] HospitalIn the event this information is protected by the Federal Confidentiality of Alcohol and Drug Abuse Patient Records regulations: The Federal rules restrict any use of the information to criminally investigate or prosecute any alcohol or drug abuse patient.[facility] Hospital[facility] the event this information is protected by the Federal Confidentiality of Alcohol and Drug Abuse Patient Records regulations: The Federal rules restrict any use of the information to criminally investigate or prosecute any alcohol or drug abuse patient.[facility] HospitalIn the event this information is protected by the Federal Confidentiality of Alcohol and Drug Abuse Patient Records regulations: The Federal rules restrict any use of the information to criminally investigate or prosecute any alcohol or drug abuse patient.[facility] HospitalIn the event this information is protected by the Federal Confidentiality of Alcohol and Drug Abuse Patient Records regulations: The Federal rules restrict any use of the information to criminally investigate or prosecute any alcohol or drug abuse patient.[facility] HospitalIn the event this information is protected by the Federal Confidentiality of Alcohol and Drug Abuse Patient Records regulations: The Federal rules restrict any use of the information to criminally investigate or prosecute any alcohol or drug abuse patient.[facility] HospitalIn the event this information is protected by the Federal Confidentiality of Alcohol and Drug Abuse Patient Records regulations: The Federal rules restrict any use of the information to criminally investigate or prosecute any alcohol or drug abuse patient.[facility] Reason for Visit (unrecogniz ed section and content) Reason Comments Derm Problem Spot on R testicle x 1 day Reason Comments Results Reason Comments Radiology US Specialty Diagnoses / Procedures Referred By Rosalie du Referred To Contact US IMAGING Diagnoses Testicular lump Procedures US SCROTUM AND CONTENTS US SCROTUM & CONTENTS Stefany Heaton, PRIMARY CARE PROVIDER.[address] [place] [address] [place] [address] Referral ID Status Reason Start Date Expiration Date V isits Requested Visits Authorized [id number] Closed Auto-Generate d Referral 11/08/2022 12/08/2023 1 1 Reason Comments abdominal discomfort RLQ X 2 weeks Specialty Diagnoses / Procedures Referred By Rosalie du Referred To Contact US IMAGING Diagnoses RUQ pain Procedures US ABD RIGHT UPPER QUADRANT US ABDOMINAL REAL TIME W/IMAGE LIMITED Sheri Tomlin, REYNALDO.[address] [place] [address] [place] [address] Referral ID Status Reason Start Date Expiration Date V isits Requested Visits Authorized [id number] Closed Auto-Generate d Referral 10/07/2023 11/05/2024 1 1 Reason Comments Results Reason Comments Radiology Review Reason Onset Date Comments Refill Request 03/14/2024 Reason Onset Date Comments Refill Request 03/28/2024 Reason Onset Date Comments Refill Request 06/22/2024 (unrecognized sect ion and content) No Status Records FoundNo Status Records Found INFORMATION SOURCE (unrecogn ized section and content) DATE CREATED AUTHOR 11/12/2024 [facility] DATE CREATED AUTHOR AUTHOR'S MORISIZ ATION 02/06/2025 [facility] FOR RECORDS PERTAINING TO PATIENTS WHO ARE [...] BE BASED ON THE PRIMARY CLINICAL RECORDS. [employer] provides no warranty or guarantee of the accuracy or completeness of information in this document.
== END | disposition home or self-care (01) ==
PROVIDERS: PCP Internal Medicine; Visit Provider Physician Assistant Surgical
DX: M25.531 Pain in right wrist (principal)
CPT/HCPCS: 73110

== ENCOUNTER 2025-05-03 11:00 | Outpatient (RCR) | payer OTHER, BC, SELFPAY ==
--- NOTE | 2025-03-23 07:41 | HP.OTEVAL_ITS ---
Patient's Visit Information Visit Information Visit Information: ALEJANDRA FROST is a 39 year old M, referred to Occupational Therapy by FAMILIA Robertson, with a diagnosis of right wrist strain. Date of Evaluation: 03/22/25 Occupational Therapist: ATTILA Chambers/Pelon, CHT Subjective Subjective: This 39 year old male was seen for OT eval with dx of right wrist sprain. 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 Pt states he felt a pull and a pop- pt states he went to cont. 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 Pt thought this is not right- pt states he went to get checked out. Pt was placed in a wrist brace. pt states he was placed in this on March 10. pt is left handed pt states prior to this injury he was IND with ADLs and IADLs and now task are more challenging with brace on. Pain right wrist: Current Pain Intensity: 2 Pain Intensity Range: 6 ROM Forearm: right/left WNL Wrist: right 55/ 35 left 65/45 CMC: right 10 left 10 MP: right 60 left 60 IP: right 70 left 65 Strength University Registrar: right 45# pain with release left 105# Lateral Pinch: right 10# left 16# Tripod Pinch: right 12# left 16# Sensation Sensation Comments: denies Quick DASH-Disab of Arm,Shoulder& Hand Quick DASH Score: 68.3325 Goals Goal:: pt will demo a increase in right dermatological surgeon strength by 20# or greater to return pt to his PLOF by d.c Goal:: pt will demo increase in right wrist ROM by 10* or greater to return pt to his PLOF by dc Goal:: pt will report no pain greater than 1/10 with work tasks by d.c Goal:: Pt will demo understanding of joint protection and ergonomics when performing BADLs and IADLs by d/c Pt will demo understanding of adaptive Equipment use to decrease stress on joints to allow pt to perform BADSL and IADLS at ANISH level. Rehabilitation General Assessment: pt demo with painful right wrist limiting use of right UE with work tasks. Pt would benefit from further skilled OT services 3x week for 4-6 weeks to return pt to his PLOF. Rehabilitation Potential: Good Anticipated Interventions Anticipated Interventions: A/TANIA/PROM, Strengthening, Modalities, Orthoses, Joint Protection/Energy Conservation, Ergonomic Education, Fine Motor Coord/[place] and Home Program Visit Plan Frequency: 3x /Week Duration: 4-6 Weeks TEXT: Thank you for the opportunity to evaluate your patient. For Medicare and Medicare HMO plans, please review the plan of care and approve it. It will need to be FAXED BACK to us at [phone] for Medicare purposes. Please let me know if there are questions or concerns regarding this plan of care. Physician Signature: Date:
--- NOTE | 2025-04-13 11:29 | HP.OTREVAL ---
Re-Evaluation Intro: FAMILIA Robertson, It has been my pleasure to treat ALEJANDRA FROST over the last 10 visits for right wrist strain. Please see the progress note below for an update on the occupational therapy plan of care! Subjective Subjective: pt states he has no change. 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 Anticipated Interventions Anticipated Interventions Anticipated Interventions: A/AAROM/PROM, Strengthening, Modalities, Orthoses, Joint Protection/Energy Conservation, Ergonomic Education, Fine Motor Coord/[place] and Home Program Re-Evaluation Ending Re-evaluation ending: Please do not hesitate to contact me at [phone] by phone or if you have questions or concerns regarding this new plan of care! Sincerely, Mali Li OTR/L, CHT
--- NOTE | 2025-05-03 11:36 | HP.OTDCSUM ---
Discharge Summary D/C Summary: It has been my pleasure to treat ALEJANDRA FROST under orders from FAMILIA Robertson, for the diagnosis of right wrist strain for a total of 17 visit(s). Please see the following information for a summary of their discharge status. 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 goal met Plan Plan: WRIST STABILIZATION EXERCISES PRE in comfort ROM wean out of brace D/C Information Discharge Comments: This 39 year old male seen for R wrist pain. pt seen for total of 17 sessions c9 ending the making today last session. pt continues to have pain in wrist with movement and use and will be going for MRI May 24 for further management. d/c sentence: If there are questions or concerns regarding this patient's occupational therapy, please fell free to call me at [phone]. Thank you for the referral of this patient. Sincerely, Brooke Portillo
== END 2025-05-03 19:00 | disposition home or self-care (01) ==
LOC: OT 11:00
PROVIDERS: PCP Internal Medicine; Referring Provider Physician Assistant Surgical; Visit Provider Physician Assistant Surgical
DX: S66.911D Strain of unspecified muscle, fascia and tendon at wrist and hand level, right hand, subsequent encounter (principal)
CPT/HCPCS: 97035; 97110; 97140; 97166; 97530